=== PATIENT | male | born 1975 | race Caucasian/White ===

== ENCOUNTER 2020-03-22 16:31 | Inpatient (IN) | payer MEDICAID, OTHER ==
[2020-03-22 17:44] LABS: Amphetamine Screen,Urine Not Detected (NotDetected); Barbiturate Screen,Urine Not Detected (NotDetected); Benzodiazepines Screen,Urine Not Detected (NotDetected); Cocaine Screen,Urine Not Detected (NotDetected); Methadone Screen, Urine Not Detected (NotDetected); Opiate Screen,Urine Not Detected (NotDetected); Oxycodone Screen, Urine Not Detected (NotDetected); Phencyclidine Screen,Urine Not Detected (NotDetected); Tricyclic Antidepressant,Urine Not Detected (NotDetected); Urn Cannabinoid Scrn Detected (NotDetected)
[2020-03-22] MEDS ORDERED: OLANZapine 10 MG VIAL IM STA (19:48)
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
[2020-03-22] MEDS ORDERED: lisinopriL 10 MG TAB PO STA (22:08)
[2020-03-23] MEDS ORDERED: MAGNESIUM HYDROXIDE 2,400 MG/10 ML CUP PO PRN (00:16)
[2020-03-23] MEDS ORDERED: LORazepam 1 MG TAB PO PRN (00:16)
[2020-03-23] MEDS ORDERED: HALOPERIDOL LACTATE 5 MG/ML 1 ML VIAL IM PRN (00:18)
[2020-03-23] MEDS ORDERED: haloperidoL 1 MG TAB PO PRN (00:18)
[2020-03-23] MEDS ORDERED: LORazepam 2 MG/ML INJ IM PRN (00:18)
[2020-03-23] MEDS: NICOTINE 14MG/24HR PATCH TRANSDERM SCH (08:16)
[2020-03-23] MEDS: lisinopriL 10 MG TAB PO SCH (08:16)
[2020-03-23] MEDS ORDERED: FLUoxetine HCL 10 MG CAP PO SCH (09:00)
[2020-03-23] MEDS ORDERED: busPIRone HCl 5 MG TAB PO SCH (09:00)
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
[2020-03-23 15:08] VITALS: BMI 18.1
[2020-03-23] MEDS ORDERED: QUEtiapine 100 MG TAB PO SCH (21:00)
[2020-03-23] MEDS ORDERED: DIVALPROEX ER 500 MG TAB.ER.24H PO SCH (21:00)
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
[2020-03-24] MEDS: NICOTINE 14MG/24HR PATCH TRANSDERM SCH (08:05)
[2020-03-24] MEDS: lisinopriL 10 MG TAB PO SCH (08:05)
[2020-03-24] MEDS: amLODIPine 5 MG TAB PO SCH (08:05)
[2020-03-24 08:09] LABS: Basophils # (A) 0.1 k/uL (0-0.2); Basophils % (A) 1 %; Eosinophils # (A) 0.4 k/uL (0-0.7); Eosinophils % (A) 6 %; HCT 42.7 % (39.0-53.0); HGB 14.3 gm/dL (13.0-17.5); Lymphocytes # (A) 2.9 k/uL (1.0-4.8); Lymphocytes % (A) 39 %; MCH 34.2 pg (25.0-35.0); MCHC 33.5 g/dL (31.0-37.0); MCV 102.4 fL (80.0-100.0); Macrocytosis Slight; Monocytes # (A) 0.6 k/uL (0-1.0); Monocytes % (A) 8 %; Neutrophils # (A) 3.3 k/uL (1.3-7.7); Neutrophils % (A) 44 %; Platelet Count 232 k/uL (150-450); RBC 4.17 m/uL (4.30-5.90); RDW 12.9 % (11.5-15.5); WBC 7.3 k/uL (3.8-10.6)
[2020-03-24 08:26] LABS: ALT 17 U/L (4-49); AST 26 U/L (17-59); African American GFR (CKD) >90 (>60 ml/min/1.73 sqM); Albumin 3.9 g/dL (3.5-5.0); Alkaline Phosphatase 37 U/L (38-126); Anion Gap 5 mmol/L; Blood Urea Nitrogen 13 mg/dL (9-20); Calcium 9.3 mg/dL (8.4-10.2); Carbon Dioxide 26 mmol/L (22-30); Chloride 108 mmol/L (98-107); Cholesterol 148 mg/dL (<200); Glucose 89 mg/dL (74-99); HDL Cholesterol 53 mg/dL (40-60); LDL Cholesterol,Calculated 80 mg/dL (0-99); Non-African American GFR(CKD) >90 (>60 ml/min/1.73 sqM); Potassium 4.7 mmol/L (3.5-5.1); Sodium 139 mmol/L (137-145); Total Bilirubin 0.6 mg/dL (0.2-1.3); Total Protein 6.6 g/dL (6.3-8.2); Triglycerides 74 mg/dL (<150)
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
[2020-03-24 14:15] LABS: Hemoglobin A1C 5.2 % (4.0-6.0)
[2020-03-24] MEDS ORDERED: PALIPERIDONE 3 MG TAB.ER.24 PO SCH (21:00)
[2020-03-24] MEDS ORDERED: DIVALPROEX ER 250 MG TAB.ER.24H PO SCH (21:00)
[2020-03-24 22:39] LABS: Appearance,Urine Clear (Clear); Bilirubin,Urine Negative (Negative); Blood,Urine Negative (Negative); Color,Urine Light Yellow; Glucose,Urine (UA) Negative (Negative); Ketones,Urine Negative (Negative); Leukocyte Esterase,Urine Negative (Negative); Nitrite,Urine Negative (Negative); Protein,Urine Negative (Negative); Urobilinogen,Urine <2.0 mg/dL (<2.0)
[2020-03-25] MEDS: NICOTINE 14MG/24HR PATCH TRANSDERM SCH (08:48)
[2020-03-25] MEDS: lisinopriL 10 MG TAB PO SCH (08:49)
[2020-03-25] MEDS: amLODIPine 5 MG TAB PO SCH (08:49)
--- NOTE | 2020-03-25 10:24 | P.PN ---
Progress Note - Text Progress Note Date: 03/25/20 Interval History: Patient reports that he feels "okay." The patient has been reported to have slept for 6 hours. He is currently not reporting any suicidal or homicidal ideation, intention, and/or plan. He is not reporting any significant racing thoughts, mood swings, or impulsivity. He denies any increased goal-directed behavior. He does continue to endorse significant paranoia towards his father as well as all those that don't believe him. He was confronted today by this provider that these thoughts may be secondary to the paranoia he experiences as part of his mental condition, but the patient refuses to acknowledge this and is said adamant that people are conspiring against him. He has been adherent with his medications and is not reporting any significant side effects. Mental Status Exam: General Appearance: Patient appears to be stated age is alert, directable, and cooperative. Fair hygiene and grooming. Behavior: Psychomotor activity continues to appear to be elevated. Speech: Patient's speech is fluent and somewhat pressured. Speech is normal in volume now. He continues to be somewhat circumstantial. Mood/Affect: Mood is doing okay, affect is congruent but continues to be slightly expansive in range. Suicidality/Homicidality: Patient vehemently denies any suicidal or homicidal ideation, intention, and/or plan. Perceptions: Patient denies any auditory or visual hallucinations. Though content/process: Patient continues to endorse significant paranoia. Otherwise he appears to be linear in short conversation. Memory and concentration: AOX3, grossly intact for the purposes of this session Judgment and insight: Very poor Assessment Bipolar disorder, type I, manic episode Plan: -Patient continues to meet criteria for inpatient psychiatric admission for symptom stabilization and safety. Patient is scheduled for a deferral hearing today. -Medications: Increase Depakote ER to 1000 mg by mouth daily at bedtime for mood stabilization. We will obtain a Depakote level on Saturday. We will increase his Invega to 6 mg by mouth at bedtime. -When necessary Ativan and Haldol for agitation/aggression. -NRT - nicotine patch -SW on board for discharge planning. Encouraged the patient to participate in milieu.
[2020-03-25] MEDS: MAG HYDROX/AL HYDROX/SIMETH 30 ML CUP PO PRN (11:09)
[2020-03-25] MEDS: DIVALPROEX ER 500 MG TAB.ER.24H PO SCH (21:06)
[2020-03-25] MEDS: PALIPERIDONE 3 MG TAB.ER.24 PO SCH (21:09)
[2020-03-26] MEDS: NICOTINE 14MG/24HR PATCH TRANSDERM SCH (08:45)
[2020-03-26] MEDS: amLODIPine 10 MG TAB PO SCH (08:45)
[2020-03-26] MEDS: lisinopriL 10 MG TAB PO SCH (08:45)
[2020-03-26] MEDS: ACETAMINOPHEN TAB 325 MG TAB PO PRN (15:01)
--- NOTE | 2020-03-26 16:12 | P.PN ---
Progress Note - Text Progress Note Date: 03/26/20 Clinical Problems: Bipolar disorder type I manic episode Interim history: I reviewed the medical record and history of depression. He complained of feeling tired and fatigued from his current medications. He talked extensively about how he felt when he was abusing alcohol and compared how he felt not to how he felt when he was intoxicated. He questioned why he is taking 2 medications at nighttime when he has "no problems sleeping." When asked about reason for hospitalization gave a pressured, circumstantial and disjointed explanation about family property, call the police, conflict with his father and the of his grandmother and grandfather. She attends therapeutic groups and activities. He is posed no management problem and has no episodes of behavioral dyscontrol. He slept 7 hours last night. Mental status exam: He presented as a short thin disheveled appearing male who was pleasant on approach. He made eye contact and attended the interview. He had a bright facial expression. He was not restless or agitated. His speech was pressured with increased rate and rhythm. His affect was elevated but not intense and appropriate. He denied suicidal or homicidal ideation. Denied feeling hopeless, helpless or worthless. He ruminated about medications and the circumstances that led to this hospitalization. Express paranoid ideation but no clear paranoid delusional place. His thinking was concrete and associations were loosely organized. He denied hallucinations did not appear to responding to internal stimuli. Assessment: He continues to express paranoid thoughts but did not express or talk about paranoid ideation and brought him to the psychiatric unit. Plan: Attending inpatient treatment. Safety precautions. Continue Invega 6 mg at bedtime and Depakote 1000 mg at bedtime. Depakote level on 03/27/2019. Continue Norvasc for hypertension and Habitrol for smoking cessation. Encouraged continued participation in therapeutic groups and activities. Evaluate clinical status response to treatment daily basis.
[2020-03-26] MEDS: PALIPERIDONE 3 MG TAB.ER.24 PO SCH (21:01)
[2020-03-26] MEDS: DIVALPROEX ER 500 MG TAB.ER.24H PO SCH (21:02)
[2020-03-27] MEDS: lisinopriL 10 MG TAB PO SCH (08:28)
[2020-03-27] MEDS: amLODIPine 10 MG TAB PO SCH (08:28)
[2020-03-27] MEDS: NICOTINE 14MG/24HR PATCH TRANSDERM SCH (08:28)
[2020-03-27] MEDS: ACETAMINOPHEN TAB 325 MG TAB PO PRN (10:51)
--- NOTE | 2020-03-27 12:48 | P.PN ---
Progress Note - Text Progress Note Date: 03/27/20 Clinical Problems: Bipolar disorder type I manic episode Interim history: I reviewed the medical record and interviewed the patient. He again complained of feeling tired and fatigued from his current medications and attributes these feelings to his medication "too strong". He had a serum valp roic acid level this morning. At 63.2 level was therapeutic. We discussed treatment options and I agreed to decrease in the dose of Invega. She attends therapeutic groups and activities. He is posed no management problem and has no episodes of behavioral dyscontrol. He slept 7 hours last night. Mental status exam: He presented as a short thin disheveled appearing male who was pleasant on approach. He made eye contact and attended the interview. He had a bright facial expression. He was not restless or agitated. His speech was nonpressured.. His affect was blunted, stable and appropriate. He denied suicidal or homicidal ideation. He denied feeling hopeless, helpless or worthless. He ruminated about medications and the circumstances that led to this hospitalization. He did not express paranoid ideation or paranoid delusional beliefs. His thinking was concrete and associations were loosely organized. He denied hallucinations did not appear to responding to internal stimuli. Assessment: He is less restless, agitated and disorganized on admission. He is complaining of continued sedation. Plan: Continue inpatient treatment. Safety precautions. Decrease Invega to 3 mg daily and continue Depakote 1000 mg at bedtime. Depakote level on 03/27/2019. Continue Norvasc for hypertension and Habitrol for smoking cessation. Encouraged continued participation in therapeutic groups and activities. Evaluate clinical status response to treatment daily basis.
[2020-03-27] MEDS: DIVALPROEX ER 500 MG TAB.ER.24H PO SCH (21:00)
[2020-03-28] MEDS: NICOTINE 14MG/24HR PATCH TRANSDERM SCH (08:31)
[2020-03-28] MEDS: amLODIPine 10 MG TAB PO SCH (08:32)
[2020-03-28] MEDS: lisinopriL 10 MG TAB PO SCH (08:32)
[2020-03-28] MEDS ORDERED: PALIPERIDONE 3 MG TAB.ER.24 PO SCH (09:00)
--- NOTE | 2020-03-28 10:32 | P.PN ---
Progress Note - Text Progress Note Date: 03/28/20 Interval History: Patient was seen attending group and was directable and agreeable to speak with parts data writer in the office. Patient states that he is feeling pretty good. He is not reporting any suicidal or homicidal ideation, intention, and/or plan. He is not expressing any racing thoughts, mood swings, or impulsivity. He has been sleeping at night. He continues to endorse paranoia towards his father but it appears to be more understanding that his actions that led him to this hospitalization were out of proportion to what would be deemed acceptable. He has been adherent with his medications and is not reporting any significant side effects at this time. He expresses that upon discharge, he'll be living with his and that they're looking for a new apartment in [place]. Mental Status Exam: General Appearance: Patient appears to be stated age is alert, directable, and cooperative. Hygiene and grooming are excellent. Behavior: Patient is calmly seated without any agitated behavior. Psychomotor activity appears normal. Speech: Patient's speech is fluent and nonpressured. Mood/Affect: Mood is improving mildly, affect is congruent and euthymic. Suicidality/Homicidality: Patient is not reporting any suicidal or homicidal ideation, intention, and/or plan. Perceptions: Patient is not reporting any auditory or visual hallucinations. Though content/process: He continues to endorse significant paranoia towards his father. Otherwise he is future and goal oriented. Memory and concentration: AOX3, grossly intact for the purposes of this session Judgment and insight: Improving mildly Assessment Bipolar disorder, type I, manic episode Nicotine dependence Plan: -Patient continues to meet criteria for inpatient psychiatric admission for symptom stabilization and safety. Patient deferred on 03/25/2020. -Medications: Continue Invega 3 mg by mouth at bedtime for psychosis/mood stabilization Continue Depakote ER 1000 mg by mouth daily at bedtime. Depakote level was 63.2 on 03/27/2020 -When necessary Ativan and Haldol for agitation/aggression. -NRT - nicotine patch -SW on board for discharge planning. Encouraged the patient to participate in milieu.
[2020-03-28] MEDS: ACETAMINOPHEN TAB 325 MG TAB PO PRN (16:22)
[2020-03-28] MEDS: DIVALPROEX ER 500 MG TAB.ER.24H PO SCH (21:51)
[2020-03-28] MEDS: PALIPERIDONE 6 MG TAB.ER.24 PO SCH (22:09)
[2020-03-29] MEDS: NICOTINE 14MG/24HR PATCH TRANSDERM SCH (08:25)
[2020-03-29] MEDS: lisinopriL 10 MG TAB PO SCH (08:26)
[2020-03-29] MEDS: amLODIPine 10 MG TAB PO SCH (08:26)
[2020-03-29] MEDS: ACETAMINOPHEN TAB 325 MG TAB PO PRN (08:44)
[2020-03-29] MEDS: MAG HYDROX/AL HYDROX/SIMETH 30 ML CUP PO PRN ×2 (11:48→19:43)
--- NOTE | 2020-03-29 11:56 | P.PN ---
Progress Note - Text Progress Note Date: 03/29/20 Interval History: Patient was seen attending group this morning and was directable and agreeable to speak with commercial loan underwriter in the office. Patient was somewhat suspicious of commercial loan underwriter however was attempting to cooperate for the most part during the interview. He offered no overnight complaints and states that he slept well throughout the night. He offered no complaints about the medications he claims that he's been taking them as prescribed. He states that his mood has been stabilizing more and denies any depression at this time. He is not reporting any suicidal or homicidal ideation, intention, and/or plan. He is not expressing any racing thoughts, mood swings, or impulsivity. He continues to endorse paranoia towards his father. He has been adherent with his medications. Patient was asking about speaking with his significant other and when he can be discharged to [place]. Patient continues to have minimal insight and judgment. He was seen later on in the hallway by commercial loan underwriter and came up to commercial loan underwriter and was complaining about the medication states that "it's making my heart race and I do want to take that anymore". Mental Status Exam: General Appearance: Patient appears to be stated age is alert, directable, and attempts to be cooperative. Hygiene and grooming are improving mildly Behavior: Patient is calmly seated without any agitated behavior. Psychomotor activity appears normal. Speech: Patient's speech is fluent and nonpressured. He speaks rapidly at times. Mood/Affect: Mood is improving mildly, affect is congruent Suicidality/Homicidality: Patient is not reporting any suicidal or homicidal ideation, intention, and/or plan. Perceptions: Patient is not reporting any auditory or visual hallucinations. Though content/process: He continues to endorse significant paranoia towards his father. Goal oriented. Tangential. Preoccupied with his medications. Memory and concentration: AOX3, grossly intact for the purposes of this session Judgment and insight: Poor, Improving mildly Assessment Bipolar disorder, type I, manic episode Nicotine dependence Plan: -Patient continues to meet criteria for inpatient psychiatric admission for symptom stabilization and safety. Patient deferred on 03/25/2020. -Medications: Continue Invega 6 mg by mouth at bedtime for psychosis/mood stabilization Continue Depakote ER 1000 mg by mouth daily at bedtime. Depakote level was 63.2 on 03/27/2020 -When necessary Ativan and Haldol for agitation/aggression. -NRT - nicotine patch -SW on board for discharge planning. Encouraged the patient to participate in milieu. Likely discharge in 1-2 days.
[2020-03-29] MEDS: DIVALPROEX ER 500 MG TAB.ER.24H PO SCH (22:17)
[2020-03-29] MEDS: PALIPERIDONE 6 MG TAB.ER.24 PO SCH (22:18)
[2020-03-30] MEDS: lisinopriL 10 MG TAB PO SCH (08:43)
[2020-03-30] MEDS: NICOTINE 14MG/24HR PATCH TRANSDERM SCH ×2 (08:43→13:52)
[2020-03-30] MEDS: amLODIPine 10 MG TAB PO SCH (08:44)
--- NOTE | 2020-03-30 10:05 | P.PN ---
Progress Note - Text Progress Note Date: 03/30/20 Interval History: Patient was seen attending group and was directable and agreeable to speak with gag writer in his room. The patient states that upon discharge, he would likely be returning back to his home with his partner. He is currently not reporting any suicidal or homicidal ideation, intention, and/or plan. He is not reporting any auditory or visual hallucinations. Continues to endorse paranoia towards his father. He states that he is likely to file a PPO against his father. When asked that his property is currently owned by his father, the patient states that his father should be okay with him returning home. He states that he will sign a release of information for his father for our treatment team to speak with. He reported that he was having an increased heart rate but attributes this to his nicotine patch. He has been adherent with his medications and is not reporting any significant side effects at this time. Mental Status Exam: General Appearance: Patient appears to be stated age is alert, directable, and cooperative. Hygiene and grooming are good. Behavior: Patient is lying down in bed calmly without any agitated behavior. Psychomotor activity appears normal. Speech: Patient's speech is fluent and nonpressured. Mood/Affect: Mood is improving mildly, affect is congruent and euthymic. Suicidality/Homicidality: Patient is not reporting any suicidal or homicidal ideation, intention, and/or plan. Perceptions: Patient is not reporting any auditory or visual hallucinations. Though content/process: Patient continues to endorse paranoia towards his father. Memory and concentration: AOX3, grossly intact for the purposes of this session Judgment and insight: Improving mildly Assessment Bipolar disorder, type I, manic episode Nicotine dependence Plan: -Patient continues to meet criteria for inpatient psychiatric admission for symptom stabilization and safety. Patient deferred on 03/25/2020. -We will order EKG. Pending EKG, may consider increase in invega. -Medications: Continue Invega 6 mg by mouth at bedtime for psychosis/mood stabilization Continue Depakote ER 1000 mg by mouth daily at bedtime. Depakote level was 63.2 on 03/27/2020 -When necessary Ativan and Haldol for agitation/aggression. -NRT - nicotine patch -SW on board for discharge planning. Encouraged the patient to participate in milieu.
[2020-03-30] MEDS: DIVALPROEX ER 500 MG TAB.ER.24H PO SCH (21:13)
[2020-03-30] MEDS: PALIPERIDONE 6 MG TAB.ER.24 PO SCH (21:13)
[2020-03-31 06:42] VITALS: RESP 18; TEMP 98.1
[2020-03-31] MEDS: amLODIPine 10 MG TAB PO SCH (08:28)
[2020-03-31] MEDS: lisinopriL 10 MG TAB PO SCH (08:28)
[2020-03-31] MEDS: NICOTINE 14MG/24HR PATCH TRANSDERM SCH (08:29)
[2020-03-31 08:31] VITALS: BP 132/98; PULSE 118
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
== END 2020-03-31 18:31 | disposition home or self-care (01) | DRG 885 ==
LOC: EC 16:31 → 3MHU 03-23
PROVIDERS: ADMIT Psychiatry & Neurology Psychiatry; ATTEND Psychiatry & Neurology Psychiatry
DX: F31.9 Bipolar disorder, unspecified (principal); F12.20 Cannabis dependence, uncomplicated; F17.210 Nicotine dependence, cigarettes, uncomplicated; F22 Delusional disorders; I10 Essential (primary) hypertension; Z20.822 Contact with and (suspected) exposure to COVID-19
CPT/HCPCS: 80053; 80061; 80164; 80306; 81003; 82075; 83036; 84443; 85025; 87635; 93005; 99285

== ENCOUNTER 2020-04-11 15:22 | Inpatient (IN) | payer MEDICAID, OTHER ==
--- NOTE | 2020-04-11 15:47 | ED ---
General Adult HPI - General Chief complaint: Psychiatric Symptoms Stated complaint: Mental health Time Seen by Provider: 04/11/20 15:25 Source: patient, police, RN notes reviewed, old records reviewed Mode of arrival: ambulatory Limitations: no limitations - History of Present Illness Initial comments: This is a 44-year-old male who presents emergency Department because he was brought in by police because he has been getting more more agitated and he has missed his appointments at [facility]. The patient himself denies missing any appointments and he states he is only here because he was unable to fill his medications at the pharmacy. Patient denies any suicidal homicidal ideations. Patient denies any alcohol use patient denies any drug use. Patient denies any physical complaints at all. Patient denies chest pain difficulty breathing or shortness of breath. Patient denies any fever chills or cough per patient denies abdominal pain patient denies nausea vomiting diarrhea. - Related Data Previous Rx's Medication Instructions Recorded Divalproex ER [Depakote ER] 1,000 mg PO HS 30 Days tab.er.24h 03/31/20 Nicotine 14Mg/24Hr Patch [Habitrol] 1 patch TRANSDERM DAILY 30 Days 03/31/20 patch Paliperidone [Invega] 6 mg PO HS 30 Days tab.er.24 03/31/20 amLODIPine [Norvasc] 10 mg PO DAILY 30 Days tab 03/31/20 lisinopriL [Zestril] 30 mg PO DAILY 30 Days tab 03/31/20 Allergies Allergy/AdvReac Type Severity Reaction Status Date / Time No Known Allergies Allergy Verified 04/11/20 15:58 Review of Systems ROS Statement: Those systems with pertinent positive or pertinent negative responses have been documented in the HPI. ROS Other: All systems not noted in ROS Statement are negative. Past Medical History Past Medical History: Hypertension History of Any Multi-Drug Resistant Organisms: None Reported Past Surgical History: No Surgical Hx Reported Past Psychological History: Anxiety, Bipolar, Depression Smoking Status: Current every day smoker Past Alcohol Use History: None Reported Past Drug Use History: Marijuana - Past Family History family Family Medical History: No Reported History General Exam - General Exam Comments Initial Comments: GENERAL: Patient is well-developed and well-nourished. Patient is nontoxic and well- hydrated and is in no acute distress. ENT: Neck is soft and supple. No significant lymphadenopathy is noted. Oropharynx is clear. Moist mucous membranes. Neck has full range of motion without eliciting any pain. EYES: The sclera were anicteric and conjunctiva were pink and moist. Extraocular movements were intact and pupils were equal round and reactive to light. Eyelids were unremarkable. PULMONARY: Unlabored respirations. Good breath sounds bilaterally. No audible rales rhonchi or wheezing was noted. CARDIOVASCULAR: There is a regular rate and rhythm without any murmurs gallops or rubs. ABDOMEN: Soft and nontender with normal bowel sounds. SKIN: Skin is clear with no lesions or rashes and otherwise unremarkable. NEUROLOGIC: Patient is alert and oriented x3. Cranial nerves II through XII are grossly intact. Motor and sensory are also intact. Normal speech, volume and content. Symmetrical smile. MUSCULOSKELETAL: Normal extremities with adequate strength and full range of motion. LYMPHATICS: No significant lymphadenopathy is noted PSYCHIATRIC: Patient denies any suicidal homicidal ideations. Patient denies seeing anything abnormal or hearing voices. Limitations: no limitations Course Vital Signs 04/11/20 15:23 Temperature 98.3 F Pulse Rate 94 Respiratory 18 Rate Blood Pressure 169/111 O2 Sat by Pulse 98 Oximetry Medical Decision Making - Medical Decision Making EPS evaluated the patient and determined that the patient be admitted the patient was admitted. Patient was okay with being admitted but he still did not remember missing appointments and he denied not taking his medications. - Lab Data Lab Results 04/11/20 Range/Units 15:53 Urine Opiates Screen Not Detected (NotDetected) Ur Oxycodone Screen Not Detected (NotDetected) Urine Methadone Screen Not Detected (NotDetected) Ur Propoxyphene Screen Not Detected (NotDetected) Ur Barbiturates Screen Not Detected (NotDetected) U Tricyclic Antidepress Not Detected (NotDetected) Ur Phencyclidine Scrn Not Detected (NotDetected) Ur Amphetamines Screen Not Detected (NotDetected) U Methamphetamines Scrn Not Detected (NotDetected) U Benzodiazepines Scrn Not Detected (NotDetected) Urine Cocaine Screen Not Detected (NotDetected) U Marijuana (THC) Screen Detected H (NotDetected) Disposition Clinical Impression: Acute psychosis Disposition: ADMITTED IP TO THIS HOSP Referrals: None,Stated [Primary Care Provider] - 1-2 days Time of Disposition: 17:03
[2020-04-11 16:14] LABS: Amphetamine Screen,Urine Not Detected (NotDetected); Barbiturate Screen,Urine Not Detected (NotDetected); Benzodiazepines Screen,Urine Not Detected (NotDetected); Cocaine Screen,Urine Not Detected (NotDetected); Methadone Screen, Urine Not Detected (NotDetected); Opiate Screen,Urine Not Detected (NotDetected); Oxycodone Screen, Urine Not Detected (NotDetected); Phencyclidine Screen,Urine Not Detected (NotDetected); Tricyclic Antidepressant,Urine Not Detected (NotDetected); Urn Cannabinoid Scrn Detected (NotDetected)
[2020-04-11] MEDS ORDERED: LORazepam 1 MG TAB PO PRN (19:09)
[2020-04-11] MEDS ORDERED: MAGNESIUM HYDROXIDE 2,400 MG/10 ML CUP PO PRN (19:09)
[2020-04-11] MEDS ORDERED: LORazepam 2 MG/ML INJ IM PRN (19:10)
[2020-04-11] MEDS ORDERED: haloperidoL 5 MG TAB PO PRN (19:10)
[2020-04-11] MEDS ORDERED: HALOPERIDOL LACTATE 5 MG/ML 1 ML VIAL IM PRN (19:10)
[2020-04-11] MEDS: NICOTINE 14MG/24HR PATCH TRANSDERM SCH (20:46)
[2020-04-11] MEDS: DIVALPROEX ER 500 MG TAB.ER.24H PO SCH (20:46)
[2020-04-11] MEDS ORDERED: PALIPERIDONE 6 MG TAB.ER.24 PO SCH (21:00)
--- NOTE | 2020-04-11 22:57 | P.CONS ---
History of Present Illness - Reason for Consult Consult date: 04/11/20 - History of Present Illness The patient is a 44-year-old male with a PMH of hypertension, tobacco abuse, bipolar disorder, depression, and anxiety who was brought into the emergency room under police custody due to agitation and for missing his [facility] appointment. Patient was admitted to the mental health unit where he was seen and evaluated at the bedside. The patient was in good spirits and denied active complaints. He reported feeling well. He denied chest discomfort, shortness with no fever, chills, cough, nausea, vomiting, abdominal pain, diarrhea. Reported smoking 20- 25 cigarettes daily along with marijuana use. Denied any additional substance use. Review of Systems Pertinent positives and negatives as discussed in HPI, a complete review of systems was performed and all other systems are negative. Past Medical History Past Medical History: Hypertension History of Any Multi-Drug Resistant Organisms: None Reported Past Surgical History: No Surgical Hx Reported Past Psychological History: Anxiety, Bipolar, Depression Smoking Status: Current every day smoker Past Alcohol Use History: None Reported Past Drug Use History: Marijuana - Past Family History family Family Medical History: No Reported History Medications and Allergies Home Medications Medication Instructions Recorded Confirmed Type Divalproex ER [Depakote ER] 1,000 mg PO HS 30 Days tab.er.24h 03/31/20 04/11/20 Rx Nicotine 14Mg/24Hr Patch [Habitrol] 1 patch TRANSDERM DAILY 30 Days 03/31/20 04/11/20 Rx patch Paliperidone [Invega] 6 mg PO HS 30 Days tab.er.24 03/31/20 04/11/20 Rx amLODIPine [Norvasc] 10 mg PO DAILY 30 Days tab 03/31/20 04/11/20 Rx lisinopriL [Zestril] 30 mg PO DAILY 30 Days tab 03/31/20 04/11/20 Rx Allergies Allergy/AdvReac Type Severity Reaction Status Date / Time No Known Allergies Allergy Verified 04/11/20 15:58 Physical Exam Vitals: Vital Signs Temp Pulse Pulse Resp BP BP Pulse Ox 04/11/20 20:47 81 158/90 04/11/20 19:59 98.1 F 85 20 117/106 04/11/20 15:23 98.3 F 94 18 169/111 98 Intake and Output 04/11/20 04/11/20 04/11/20 06:59 14:59 22:59 Other: Weight 56.472 kg General: non toxic, no distress, appears at stated age, underweight Derm: no unusual rashes/lesions no unusual ecchymoses, warm, dry Head: atraumatic, normocephalic, symmetric Eyes: EOMI, no lid lag, anicteric sclera, pupils equal round reactive to light ENT: Nose and ears atraumatic, no thrush, no pharyngeal erythema Neck: No thyromegaly, no cervical lymphadenopathy, trachea midline, supple Mouth: no lip lesion, mucus membranes moist Cardiovascular: S1S2 reg, no murmur, positive posterior tibial pulse bilateral, no edema, capillary refill less than 2 seconds Lungs: CTA bilateral, no rhonchi, no rales , no accessory muscle use Abdominal: soft, nontender to palpation, no guarding, no appreciable organomegaly, normal bowel sounds Ext: no gross muscle atrophy, muscle strength 5 out of 5 in all 4 extremities grossly, no contractures, Neuro: CN II-XI grossly intact, light touch intact all 4 extremities, finger to nose within normal limits, Psych: Alert, oriented, appropriate affect Results Labs: Abnormal Lab Results - Last 24 Hours (Table) 04/11/20 Range/Units 15:53 U Marijuana (THC) Screen Detected H (NotDetected) Assessment and Plan Plan: Hypertension -Continue with home meds lisinopril and Norvasc Tobacco and marijuana abuse -Advised on the importance of cessation Bipolar disorder, depression -As per psychiatry Thank you for allowing us to participate in the care of this patient. We will follow peripherally. Do not hesitate to contact us with questions. Someone can be reached from the [facility] hospitalist group at all hours of the day at [phone].
[2020-04-12 07:06] LABS: Basophils # (A) 0.1 k/uL (0-0.2); Basophils % (A) 1 %; Eosinophils # (A) 0.2 k/uL (0-0.7); Eosinophils % (A) 3 %; HCT 43.9 % (39.0-53.0); HGB 14.8 gm/dL (13.0-17.5); Lymphocytes # (A) 3.1 k/uL (1.0-4.8); Lymphocytes % (A) 33 %; MCH 34.5 pg (25.0-35.0); MCHC 33.7 g/dL (31.0-37.0); MCV 102.7 fL (80.0-100.0); Macrocytosis Slight; Mean Platelet Volume 7.3; Monocytes # (A) 0.8 k/uL (0-1.0); Monocytes % (A) 8 %; Neutrophils % (A) 53 %; Platelet Count 319 k/uL (150-450); RBC 4.28 m/uL (4.30-5.90); RDW 13.1 % (11.5-15.5); WBC 9.4 k/uL (3.8-10.6)
[2020-04-12 07:25] LABS: ALT 26 U/L (4-49); AST 31 U/L (17-59); African American GFR (CKD) >90 (>60 ml/min/1.73 sqM); Albumin 4.4 g/dL (3.5-5.0); Alkaline Phosphatase 44 U/L (38-126); Anion Gap 6 mmol/L; Blood Urea Nitrogen 11 mg/dL (9-20); Calcium 9.4 mg/dL (8.4-10.2); Carbon Dioxide 28 mmol/L (22-30); Chloride 102 mmol/L (98-107); Cholesterol 144 mg/dL (<200); Glucose 83 mg/dL (74-99); HDL Cholesterol 60 mg/dL (40-60); LDL Cholesterol,Calculated 74 mg/dL (0-99); Non-African American GFR(CKD) >90 (>60 ml/min/1.73 sqM); Potassium 4.6 mmol/L (3.5-5.1); Sodium 136 mmol/L (137-145); Total Bilirubin 0.4 mg/dL (0.2-1.3); Triglycerides 48 mg/dL (<150)
[2020-04-12] MEDS: lisinopriL 10 MG TAB PO SCH (08:25)
[2020-04-12] MEDS: amLODIPine 10 MG TAB PO SCH (08:27)
[2020-04-12] MEDS: NICOTINE 14MG/24HR PATCH TRANSDERM SCH (08:27)
--- NOTE | 2020-04-12 12:09 | P.HP ---
Psychiatric H&P - . H&P Date: 04/12/20 History & Physical: Allergies Allergy/AdvReac Type Severity Reaction Status Date / Time No Known Allergies Allergy Verified 04/11/20 15:58 Vital Signs Temp 97.9 F 04/12/20 06:40 Pulse 92 04/12/20 06:40 Resp 20 04/11/20 19:59 BP 132/98 04/12/20 06:40 Pulse Ox 98 04/11/20 15:23 Intake & Output 04/11/20 04/12/20 04/12/20 18:59 06:59 18:59 Weight 70.307 kg 56.472 kg Laboratory Last Values WBC 9.4 k/uL (3.8-10.6) 04/12/20 06:35 RBC 4.28 m/uL (4.30-5.90) L 04/12/20 06:35 Hgb 14.8 gm/dL (13.0-17.5) 04/12/20 06:35 Hct 43.9 % (39.0-53.0) 04/12/20 06:35 MCV 102.7 fL (80.0-100.0) H 04/12/20 06:35 MCH 34.5 pg (25.0-35.0) 04/12/20 06:35 MCHC 33.7 g/dL (31.0-37.0) 04/12/20 06:35 RDW 13.1 % (11.5-15.5) 04/12/20 06:35 Plt Count 319 k/uL (150-450) 04/12/20 06:35 MPV 7.3 04/12/20 06:35 Neutrophils % 53 % 04/12/20 06:35 Lymphocytes % 33 % 04/12/20 06:35 Monocytes % 8 % 04/12/20 06:35 Eosinophils % 3 % 04/12/20 06:35 Basophils % 1 % 04/12/20 06:35 Neutrophils # 5.0 k/uL (1.3-7.7) 04/12/20 06:35 Lymphocytes # 3.1 k/uL (1.0-4.8) 04/12/20 06:35 Monocytes # 0.8 k/uL (0-1.0) 04/12/20 06:35 Eosinophils # 0.2 k/uL (0-0.7) 04/12/20 06:35 Basophils # 0.1 k/uL (0-0.2) 04/12/20 06:35 Macrocytosis Slight 04/12/20 06:35 Sodium 136 mmol/L (137-145) L 04/12/20 06:35 Potassium 4.6 mmol/L (3.5-5.1) 04/12/20 06:35 Chloride 102 mmol/L (98-107) 04/12/20 06:35 Carbon Dioxide 28 mmol/L (22-30) 04/12/20 06:35 Anion Gap 6 mmol/L 04/12/20 06:35 BUN 11 mg/dL (9-20) 04/12/20 06:35 Creatinine 0.80 mg/dL (0.66-1.25) 04/12/20 06:35 Est GFR (CKD-EPI)AfAm >90 (>60 ml/min/1.73 sqM) 04/12/20 06:35 Est GFR (CKD-EPI)NonAf >90 (>60 ml/min/1.73 sqM) 04/12/20 06:35 Glucose 83 mg/dL (74-99) 04/12/20 06:35 Calcium 9.4 mg/dL (8.4-10.2) 04/12/20 06:35 Total Bilirubin 0.4 mg/dL (0.2-1.3) 04/12/20 06:35 AST 31 U/L (17-59) 04/12/20 06:35 ALT 26 U/L (4-49) 04/12/20 06:35 Alkaline Phosphatase 44 U/L (38-126) 04/12/20 06:35 Total Protein 7.0 g/dL (6.3-8.2) 04/12/20 06:35 Albumin 4.4 g/dL (3.5-5.0) 04/12/20 06:35 Triglycerides 48 mg/dL (<150) 04/12/20 06:35 Cholesterol 144 mg/dL (<200) 04/12/20 06:35 LDL Cholesterol, Calc 74 mg/dL (0-99) 04/12/20 06:35 HDL Cholesterol 60 mg/dL (40-60) 04/12/20 06:35 TSH 4.670 mIU/L (0.465-4.680) 04/12/20 06:35 Urine Opiates Screen Not Detected (NotDetected) 04/11/20 15:53 Ur Oxycodone Screen Not Detected (NotDetected) 04/11/20 15:53 Urine Methadone Screen Not Detected (NotDetected) 04/11/20 15:53 Ur Propoxyphene Screen Not Detected (NotDetected) 04/11/20 15:53 Ur Barbiturates Screen Not Detected (NotDetected) 04/11/20 15:53 Valproic Acid <10.0 ug/mL 04/12/20 06:35 U Tricyclic Antidepress Not Detected (NotDetected) 04/11/20 15:53 Ur Phencyclidine Scrn Not Detected (NotDetected) 04/11/20 15:53 Ur Amphetamines Screen Not Detected (NotDetected) 04/11/20 15:53 U Methamphetamines Scrn Not Detected (NotDetected) 04/11/20 15:53 U Benzodiazepines Scrn Not Detected (NotDetected) 04/11/20 15:53 Urine Cocaine Screen Not Detected (NotDetected) 04/11/20 15:53 U Marijuana (THC) Screen Detected (NotDetected) H 04/11/20 15:53 Coronavirus (PCR) Not Detected (Not Detectd) 04/11/20 17:39 04/12/20 11:53 IDENTIFYING DATA: Patient is an engaged, unemployed, 44 year old male was admitted for agitation and nonadherence with his outpatient follow-up treatment. HPI: Patient presented to the hospital on 04/11/2020, brought in by police due to agitation and having missed his appointments with [facility]. The patient was most recently admitted to the psychiatric unit from 03/23/2020 to 03/31/2020 for treatment of bipolar disorder. During that hospital stay, the patient deferred mental health court. Currently the patient states that since he was discharged last from the psychiatric unit, he was unable to waste picker his medications stating that the pharmacist at [facility] was confused by the prescription that was written for him. He reports that they attempted to contact the psychiatric unit to fix the prescription so that he may receive his medications but was unable to do so. Furthermore, the patient states that he did not follow up with his [facility] appointment which was scheduled on 04/02/2020 because he was lacking transportation and he states that he was attempting to call [facility] but no one answered the phone. The patient states that he has not been taking any of his medications since he was last discharged. The patient is unable to fully recall the events leading to his initial hospitalization. He was informed that during that initial psychiatric evaluation, he did endorse significant paranoia and delusions believing that there were not robots on the floor that was monitoring his movements. The patient is able to recall this after he was reminded of this and states that it was likely the stress of losing his daughter that caused him to think that way. He is denying that there was any episodes of agitation since he was last discharged. Currently he is not reporting any auditory or visual hallucinations. He is not reporting any paranoia or delusions at this time. He does appear to be confused about the circumstances surrounding the custody of his daughter. He then states that he has been confusing CPS with [facility]. He is not reporting any suicidal or homicidal ideation, intention, and/or plan. He reports no issues with sleep or appetite. PAST PSYCHIATRIC HISTORY: Patient has a working diagnosis of bipolar disorder, type I. He was last discharged on Invega and Depakote. Previous psychotropic medications also include Prozac and BuSpar. The patient was most recently admitted into the psychiatric unit from 03/23/2020 to 03/31/2020. He also has 1 other prior inpatient psychiatric admission 15 years ago. The patient was supposed to follow with [facility] but did not attend his follow-up appointments. He denies any prior attempts at suicide. PMH: Hypertension ALLERGIES: NO KNOWN DRUG ALLERGIES CHEMICAL DEPENDENCY HISTORY: Patient reports smoking one pack per day of tobacco. He reports frequent and heavy marijuana use. He states he last smoked marijuana prior to this admission. He denies any alcohol use or any other illicit drug use. FAMILY PSYCHIATRIC/SUBSTANCE USE HISTORY: Patient denies any family psychiatric or substance abuse history. SOCIAL HISTORY: Patient is currently living in the home owned by his father. He lives there with his fiance Kacie with whom he has been with for 9 years. They have a 2-year-old daughter who is currently not in their custody. CPS is currently involved. MENTAL STATUS EXAM: General Appearance: Patient appears to be stated age is alert, directable, and attempts to cooperate. Patient appears to have fair hygiene and grooming. Behavior: Patient is seated without any agitated behavior. Psychomotor activity appears to be elevated. Patient is restless and unable to sit still. Speech: Patient's speech is slightly pressured, at times difficult to interrupt, loud in volume. Mood/Affect: Patient reports their mood is confused, affect is intense, expansive, and anxious. Suicidality/Homicidality: Patient denies any suicidal or homicidal ideation, intention, and/or plan. Perceptions: Patient denies any auditory or visual hallucinations. Though content/process: There is no evidence of any delusional thought content and thought process is linear and goal-directed. Memory and concentration: AOX3, grossly intact for the purposes of this session. Can spell "WORLD" backwards Judgment and insight: Poor STRENGTHS/WEAKNESSES: Strength is that the patient has stable housing and support from his fiance.. Weakness is that patient has poor judgment and is impulsive INTELLECT: Average to below average IMPRESSIONS: Bipolar disorder, type I Cannabis use disorder Nicotine dependence PLAN: -Patient is admitted under involuntary status to MHU for stabilization of psyc hiatric symptoms and safety. Patient was on the referral from his previous psychiatric hospitalization. A demand will be filed for the court. -Medications : We will restart the patient's psychotropic medications -Restart Depakote 1000 mg by mouth at bedtime for eric -Restart invega 3 mg by mouth at bedtime for psychosis/mood stabilization. Due to non-adherence with treatment we will transition the patient to invega sustenna. -Ativan and Haldol PRN for agitation/aggression -Patient was counselled on substance abuse but appears to be precontemplative on his marijuana use at this time. -Patient was informed of the risks, benefits and side effects of the medication and patient verbally consented to taking the medications. -Internal Medicine consult to perform medical evaluation and physical. -NRT - nicotine patch -SW on board for discharge planning. Encourage patient to participate in groups to work on coping skills.
[2020-04-12 13:57] LABS: Hemoglobin A1C 5.5 % (4.0-6.0)
[2020-04-12] MEDS: DIVALPROEX ER 500 MG TAB.ER.24H PO SCH (20:52)
[2020-04-12] MEDS: PALIPERIDONE 3 MG TAB.ER.24 PO SCH (20:52)
[2020-04-12 21:12] LABS: Appearance,Urine Clear (Clear); Bilirubin,Urine Negative (Negative); Blood,Urine Negative (Negative); Color,Urine Colorless; Glucose,Urine (UA) Negative (Negative); Ketones,Urine Negative (Negative); Leukocyte Esterase,Urine Negative (Negative); Nitrite,Urine Negative (Negative); Protein,Urine Negative (Negative); Specific Gravity,Urine 1.003 (1.001-1.035); Urobilinogen,Urine <2.0 mg/dL (<2.0)
[2020-04-13] MEDS: lisinopriL 10 MG TAB PO SCH (08:31)
[2020-04-13] MEDS: amLODIPine 10 MG TAB PO SCH (08:31)
[2020-04-13] MEDS: NICOTINE 14MG/24HR PATCH TRANSDERM SCH (08:31)
--- NOTE | 2020-04-13 11:09 | P.PN ---
Progress Note - Text Progress Note Date: 04/13/20 Interval History: Patient was seen wandering the hallways and was directable and agreeable to speak with the screenplay writer in the office. Currently the patient is presenting well. He is not reporting any auditory or visual hallucinations. He isn't denying any paranoia or delusions at this time. He is not reporting any suicidal or homicidal ideation, intention, and/or plan. He has been attending group and has been able to address his hygiene, grooming, and ADLs. He has been adherent with his medications but continues to express a desire not to be on any injectable medication. Regarding the circumstances of his nonadherence to treatment, the patient continues to make excuses stating that the pharmacy did not on her scripts that were written, that no one was answering the phones at [facility] or here, and that he is also lacking transportation. Mental Status Exam: General Appearance: Patient appears to be stated age is alert, directable, and cooperative. Good hygiene and grooming. Behavior: Patient is calmly seated without any agitated behavior. Psychomotor activity appears normal. Speech: Patient's speech is fluent and nonpressured. Mood/Affect: Mood is improving mildly, affect is congruent and constricted. Suicidality/Homicidality: Patient denies having any suicidal or homicidal ideation intent or plan. Perceptions: Patient denies any visual hallucinations and denies any auditory hallucinations Though content/process: There is no evidence of any delusional thought content and thought process is linear and goal-directed. Memory and concentration: AOX3, grossly intact for the purposes of this session Judgment and insight: Improving mildly Assessment Bipolar disorder, type I Cannabis use disorder Nicotine dependence Plan: -Patient continues to meet criteria for inpatient psychiatric admission for symptom stabilization and safety. Patient is under deferral from his previous psychiatric hospitalization. A demand for court has been filed with a hearing scheduled for 04/27/2020 -Medications: Continue Depakote 1000 mg by mouth at bedtime for eric We will continue Invega 3 mg by mouth at bedtime at this time and then increased to 6 mg tomorrow. -When necessary Ativan and Haldol for agitation/aggression. -NRT - nicotine patch -SW on board for discharge planning. Encouraged the patient to participate in milieu.
[2020-04-13] MEDS: DIVALPROEX ER 500 MG TAB.ER.24H PO SCH (21:48)
[2020-04-13] MEDS: PALIPERIDONE 3 MG TAB.ER.24 PO SCH (21:48)
[2020-04-14] MEDS: lisinopriL 10 MG TAB PO SCH (08:13)
[2020-04-14] MEDS: amLODIPine 10 MG TAB PO SCH (08:13)
[2020-04-14] MEDS: NICOTINE 14MG/24HR PATCH TRANSDERM SCH (08:13)
--- NOTE | 2020-04-14 10:22 | P.PN ---
Progress Note - Text Progress Note Date: 04/14/20 Interval History: Patient was seen attending group and was directable and agreeable to speak with the headline writer in the office. Patient continues to present well. He has been adherent with his medications and treatment recommendations. He has been attending groups and interacting with peers and staff appropriately. He is not reporting any suicidal or homicidal ideation, intention, and/or plan. He is not reporting any auditory or visualizations. He is currently not reporting any paranoia or delusions. He is scheduled for court due to his nonadherence with mental health treatment for 04/27/2020. He continues to be hesitant about transitioning to a long-acting injectable medication. Depakote level was determined to be less than 10 indicating that the patient has not been in adherent with his medications since his last discharge. Mental Status Exam: General Appearance: Patient appears to be stated age is alert, directable, and cooperative. Good hygiene and grooming. Behavior: Patient is calmly seated without any agitated behavior. Psychomotor activity appears normal. Speech: Patient's speech is fluent and nonpressured. Mood/Affect: Mood is improving mildly, affect is congruent and constricted. Suicidality/Homicidality: Patient denies having any suicidal or homicidal ideation intent or plan. Perceptions: Patient denies any visual hallucinations and denies any auditory hallucinations Though content/process: There is no evidence of any delusional thought content and thought process is linear and goal-directed. Memory and concentration: AOX3, grossly intact for the purposes of this session Judgment and insight: Improving mildly Assessment Bipolar disorder, type I Cannabis use disorder Nicotine dependence Plan: -Patient continues to meet criteria for inpatient psychiatric admission for symptom stabilization and safety. Patient is under deferral from his previous psychiatric hospitalization. A demand for court has been filed with a hearing scheduled for 04/27/2020 -Medications: Continue Depakote 1000 mg by mouth at bedtime for eric. Depakote level <10. We will recheck depakote level over the weekend. Invega will be increased to 6 mg by mouth daily. We do plan to transition the patient to a long-acting injectable due to history of nonadherence with treatment. -When necessary Ativan and Haldol for agitation/aggression. -NRT - nicotine patch -SW on board for discharge planning. Encouraged the patient to participate in milieu.
[2020-04-14] MEDS: PALIPERIDONE 3 MG TAB.ER.24 PO SCH (20:59)
[2020-04-14] MEDS: DIVALPROEX ER 500 MG TAB.ER.24H PO SCH (20:59)
[2020-04-15] MEDS: amLODIPine 10 MG TAB PO SCH (08:44)
[2020-04-15] MEDS: NICOTINE 14MG/24HR PATCH TRANSDERM SCH (08:44)
[2020-04-15] MEDS: lisinopriL 10 MG TAB PO SCH (08:44)
--- NOTE | 2020-04-15 10:09 | P.PN ---
Progress Note - Text Progress Note Date: 04/15/20 Interval History: Patient was seen attending group and was directable and agreeable to speak with the investigative writer in the office. Patient continues to present well. Patient has been appropriately sociable with peers and staff. He has been going to groups. He has been adherent to his medications and is not reporting any significant side effects. He is denying any suicidal or homicidal ideation, intention, and/or plan. He is not reporting any auditory or visual hallucinations. She is currently not reporting any paranoia or delusions. He is scheduled for court due to his nonadherence mental health treatment on 04/27/2020. Patient is agreeable to a slow titration of his medications to therapeutic doses. He'll continue the conversation for long-acting injectable medication, with consideration to administer early next week. Mental Status Exam: General Appearance: Patient appears to be stated age is alert, directable, and cooperative. Good hygiene and grooming. Behavior: Patient is calmly seated without any agitated behavior. Psychomotor activity appears normal. Speech: Patient's speech is fluent and nonpressured. Mood/Affect: Mood is good, affect is congruent and constricted. Suicidality/Homicidality: Patient denies having any suicidal or homicidal usha ation intent or plan. Perceptions: Patient denies any visual hallucinations and denies any auditory hallucinations Though content/process: There is no evidence of any delusional thought content and thought process is linear and goal-directed. Memory and concentration: AOX3, grossly intact for the purposes of this session Judgment and insight: Improving mildly Assessment Bipolar disorder, type I Cannabis use disorder Nicotine dependence Plan: -Patient continues to meet criteria for inpatient psychiatric admission for symptom stabilization and safety. Patient is under deferral from his previous psychiatric hospitalization. A demand for court has been filed with a hearing scheduled for 04/27/2020 -Medications: Continue Depakote 1000 mg by mouth at bedtime for eric. Depakote level <10. Depakote level will be checked tomorrow. Continue Invega current dose and we will increase Invega to 9 mg on Saturday and will consider administration of Invega Sustenna on Saturday if the patient is agreeable. -When necessary Ativan and Haldol for agitation/aggression. -NRT - nicotine patch -SW on board for discharge planning. Encouraged the patient to participate in milieu.
[2020-04-15] MEDS: PALIPERIDONE 3 MG TAB.ER.24 PO SCH (20:17)
[2020-04-15] MEDS: DIVALPROEX ER 500 MG TAB.ER.24H PO SCH (20:17)
[2020-04-16] MEDS: NICOTINE 14MG/24HR PATCH TRANSDERM SCH (08:51)
[2020-04-16] MEDS: amLODIPine 10 MG TAB PO SCH (08:52)
[2020-04-16] MEDS: lisinopriL 10 MG TAB PO SCH (08:52)
[2020-04-16] MEDS: ACETAMINOPHEN TAB 325 MG TAB PO PRN (16:33)
--- NOTE | 2020-04-16 20:51 | PN ---
DATE OF SERVICE: 04/16/2020 PROGRESS NOTE CHIEF COMPLAINT: The patient was readmitted after his 03/31 discharge due to not being able to get his medications filled or making his followup appointment. He had some difficulty with recalling events. INTERVAL HISTORY: Patient has been doing fair. He had a quiet day yesterday. He attends groups and makes some effort to engage in the group session. There is one note in the morning group as follows "the patient spoke of conspiracies and was paranoid and delusional. Patient attempted to speak of paranormal activity twice in group and asked for a law library. The patient was also paranoid about [facility] and the State." He reports that he slept fairly well last night. Today, he has been up. He attended groups today. He is appropriate in his interaction with staff and peers. Staff noted that he seemed to be in a pleasant mood. He had some complaints about legal issues, not only the court hearing regarding his court ordered treatment, but apparently some other legal issues as well. He made the statement that he was going to combine all his legal matters into one and that he may end up taking it to the [place] or even the [place]. In regard to his medications, he had no specific complaints or concerns, though he did wonder about having received more medication than he thought he was supposed to earlier on in the admission. He appears to tolerate his psychotropic medications. MENTAL STATUS: Patient sat with fair eye contact at best. Psychomotor activity was slowed. Speech was monotone and soft. He answered questions with brief responses. He would make some tangential comments. At times, it was somewhat difficult to follow his train of thought. He had a somewhat anxious intense affect. His mood was dysphoric. He seems somewhat distressed. He seemed to continued to verbalize significant paranoid ideation. He voiced no thoughts of harm. He was oriented and alert. ASSESSMENT: I will continue the current diagnosis and treatment plan. We will continue to make efforts to engage the patient in individual and group therapeutic activities. He will continue Depakote 1000 mg a day and Invega 6 mg a day. Tomorrow, Invega will go up to 9 mg. His Depakote level this morning was 79. I briefly reviewed medication issues with the patient, though he did not really engage much in that conversation, so I kept it limited. We will focus on stabilization and discharge planning. MMODL / IJN: [id number] / FRANCIS
[2020-04-16] MEDS: PALIPERIDONE 3 MG TAB.ER.24 PO SCH (21:01)
[2020-04-16] MEDS: DIVALPROEX ER 500 MG TAB.ER.24H PO SCH (21:02)
[2020-04-17] MEDS: NICOTINE 14MG/24HR PATCH TRANSDERM SCH (08:32)
[2020-04-17] MEDS: lisinopriL 10 MG TAB PO SCH (08:33)
[2020-04-17] MEDS: amLODIPine 10 MG TAB PO SCH (08:33)
[2020-04-17] MEDS: MAG HYDROX/AL HYDROX/SIMETH 30 ML CUP PO PRN (10:59)
[2020-04-17] MEDS: ACETAMINOPHEN TAB 325 MG TAB PO PRN (15:35)
--- NOTE | 2020-04-17 16:21 | PN ---
PROGRESS NOTE DATE OF SERVICE: 04/17/2020. CHIEF COMPLAINT: The patient was readmitted after his 03/31 discharge due to not being able to get his medications filled and making his followup appointment. He had some difficulty with recalling events. INTERVAL HISTORY: The patient has been doing fair. He had a quiet day yesterday. He comes out on the unit. He will wander about. He seems comfortable in the milieu. He has been attending groups. He tends to have a quiet manner in groups though is appropriate in groups. He said that he slept fairly well last night. He noted one concern that after he receives his Invega, he might have some, what he called "heart" issues. He did not really identify having any kind of abnormal heart rhythm. It is noted that he has had some tachycardia. He said he thinks one of the issues is the nicotine patch and he did indicate that he would consider stopping smoking altogether. Overall, he feels his mood is improving. He has a better outlook. He tolerates his psychotropic medications. MENTAL STATUS: Patient gave fairly good eye contact. He was a little restless. He answered questions appropriately. His thoughts were clear and coherent. He did not say a lot, though he was interactive. His affect was a little constricted though he showed a little more emotionality than when I interviewed him yesterday. His mood was reserved though not clearly down or depressed. He did not appear to be distressed. There was no outward evidence of thought disorder. He voiced no thoughts of harm. Cognition was clear. ASSESSMENT: I will continue the current diagnosis and treatment plan. I will continue psychotropic medications the same. I reviewed medication issues with the patient including indications, potential side effects, concerns relating to metabolics and movement disorder issue as it relates to the Invega. His Depakote level from yesterday is 79. We will focus on stabilization and discharge planning. MMODL / IJN: [id number] /
[2020-04-17] MEDS: DIVALPROEX ER 500 MG TAB.ER.24H PO SCH (20:43)
[2020-04-17] MEDS ORDERED: PALIPERIDONE 3 MG TAB.ER.24 PO SCH (21:00)
[2020-04-18] MEDS: NICOTINE 14MG/24HR PATCH TRANSDERM SCH (08:44)
[2020-04-18] MEDS: lisinopriL 10 MG TAB PO SCH (08:44)
[2020-04-18] MEDS: amLODIPine 10 MG TAB PO SCH (08:45)
[2020-04-18] MEDS ORDERED: PALIPERIDONE IM 234 MG/1.5 ML SYG IM STA (09:41)
--- NOTE | 2020-04-18 10:05 | P.PN ---
Progress Note - Text Progress Note Date: 04/18/20 Interval History: Patient was seen attending group and was directable and agreeable to speak with the commercial loan underwriter in the office. Patient continues to present well. He has been noted by group therapy staff to be making significant paranoid statements but has otherwise been denying any paranoia, delusional thought processes, or hallucinations to this provider. He is not reporting any suicidal or homicidal ideation, intention, and/or plan. He has been adherent with his medications and is not reporting any significant side effects. He reports the weekend went well and he was able to watch the [employer]. He is agreeable to taking Invega Sustenna at this time. We discussed at length the risks, benefits, and side effects. The patient is still inquiring about discharge. He is currently under a demand due to nonadherence with treatment. Mental Status Exam: General Appearance: Patient appears to be stated age is alert, directable, and cooperative. Good hygiene and grooming. Behavior: Patient is calmly seated without any agitated behavior. Psychomotor activity appears normal. Speech: Patient's speech is fluent and nonpressured. Mood/Affect: Mood is good, affect is congruent and constricted. Suicidality/Homicidality: Patient denies having any suicidal or homicidal ideation intent or plan. Perceptions: Patient denies any visual hallucinations and denies any auditory hallucinations Though content/process: There is no evidence of any delusional thought content and thought process is linear and goal-directed. Memory and concentration: AOX3, grossly intact for the purposes of this session Judgment and insight: Fair Assessment Bipolar disorder, type I Cannabis use disorder Nicotine dependence Plan: -Patient continues to meet criteria for inpatient psychiatric admission for symptom stabilization and safety. Patient is under deferral from his previous psychiatric hospitalization. A demand for court has been filed with a hearing scheduled for 04/27/2020 -Medications: Continue Depakote 1000 mg by mouth at bedtime for eric. Depakote level noted to be 79.0. Invega Sustenna 234 mg IM will be administered today for psychosis/eric. -When necessary Ativan and Haldol for agitation/aggression. -NRT - nicotine patch -SW on board for discharge planning. Encouraged the patient to participate in milieu.
[2020-04-18] MEDS: ACETAMINOPHEN TAB 325 MG TAB PO PRN (14:45)
[2020-04-18] MEDS: MAG HYDROX/AL HYDROX/SIMETH 30 ML CUP PO PRN (19:56)
[2020-04-18] MEDS: DIVALPROEX ER 500 MG TAB.ER.24H PO SCH (21:22)
[2020-04-19] MEDS: amLODIPine 10 MG TAB PO SCH (08:53)
[2020-04-19] MEDS: lisinopriL 10 MG TAB PO SCH (08:53)
[2020-04-19] MEDS: NICOTINE 14MG/24HR PATCH TRANSDERM SCH (08:55)
[2020-04-19] MEDS: MAG HYDROX/AL HYDROX/SIMETH 30 ML CUP PO PRN (09:04)
--- NOTE | 2020-04-19 10:08 | P.PN ---
Progress Note - Text Progress Note Date: 04/19/20 Interval History: Patient was seen attending group and was directable and agreeable to speak with the chief writer in the office. The patient reports that he is feeling well. He received the first loading dose of Invega Sustenna 234 mg IM yesterday. He is not reporting any significant side effects of the medication aside from soreness at the injection site. He is not reporting any suicidal or homicidal ideation, intention, and/or plan. He is not reporting any auditory or visual hallucinations. He is been adherent with his Depakote and denies any side effects of medication as well. The patient is not reporting any significant paranoia at this time. The patient reports that he is agreeable to waiting until his court date. Mental Status Exam: General Appearance: Patient appears to be stated age is alert, directable, and cooperative. Good hygiene and grooming. Behavior: Patient is calmly seated without any agitated behavior. Psychomotor activity appears normal. Speech: Patient's speech is fluent and nonpressured. Mood/Affect: Mood is "doing all right," affect is congruent and constricted. Suicidality/Homicidality: Patient denies having any suicidal or homicidal ideation intent or plan. Perceptions: Patient denies any visual hallucinations and denies any auditory hallucinations Though content/process: There is no evidence of any delusional thought content and thought process is linear and goal-directed. Memory and concentration: AOX3, grossly intact for the purposes of this session Judgment and insight: Fair Assessment Bipolar disorder, type I Cannabis use disorder Nicotine dependence Plan: -Patient continues to meet criteria for inpatient psychiatric admission for symptom stabilization and safety. Patient is under deferral from his previous psychiatric hospitalization. A demand for court has been filed with a hearing scheduled for 04/27/2020 -Medications: Continue Depakote 1000 mg by mouth at bedtime for eric. Depakote level noted to be 79.0. Invega Sustenna 234 mg IM was administered on 04/18/2020. The patient will receive Invega Sustenna 156 mg IM in 3 days. -When necessary Ativan and Haldol for agitation/aggression. -NRT - nicotine patch -SW on board for discharge planning. Encouraged the patient to participate in milieu.
[2020-04-19] MEDS: ACETAMINOPHEN TAB 325 MG TAB PO PRN ×2 (12:06→16:23)
[2020-04-19] MEDS: DIVALPROEX ER 500 MG TAB.ER.24H PO SCH (21:30)
[2020-04-20] MEDS: amLODIPine 10 MG TAB PO SCH (08:45)
[2020-04-20] MEDS: NICOTINE 14MG/24HR PATCH TRANSDERM SCH (08:45)
[2020-04-20] MEDS: lisinopriL 10 MG TAB PO SCH (08:45)
--- NOTE | 2020-04-20 10:20 | P.PN ---
Progress Note - Text Progress Note Date: 04/20/20 Interval History: Patient was seen attending group and was directable and agreeable to speak with the senior writer in the office. The patient reports that he is feeling "jittery." He attributes this to either the Invega or his nicotine patch. His vitals do note that he has been tachycardic. He is not endorsing any palpitations, lightheadedness, or chest pain. He reports just feelings of restlessness. He is otherwise not reporting any suicidal or homicidal ideation, intention, and/or plan. He is denying any paranoia or delusions at this time. He is not reporting any auditory or visual hallucinations. He is agreeable to his long- acting injectable medication. He is not reporting any grandiosity, racing thoughts, impulsivity, or increased goal-directed behavior. Mental Status Exam: General Appearance: Patient appears to be stated age is alert, directable, and cooperative. Good hygiene and grooming. Behavior: Patient is calmly seated without any agitated behavior. Psychomotor activity appears slightly elevated. Speech: Patient's speech is fluent and nonpressured. Mood/Affect: Mood is "feeling jittery," affect is constricted in range but otherwise euthymic. Suicidality/Homicidality: Patient denies having any suicidal or homicidal ideation intent or plan. Perceptions: Patient denies any visual hallucinations and denies any auditory hallucinations Though content/process: There is no evidence of any delusional thought content and thought process is linear and goal-directed. Memory and concentration: AOX3, grossly intact for the purposes of this session Judgment and insight: Fair Assessment Bipolar disorder, type I Cannabis use disorder Nicotine dependence Plan: -Patient continues to meet criteria for inpatient psychiatric admission for symptom stabilization and safety. Patient is under deferral from his previous psychiatric hospitalization. A demand for court has been filed with a hearing scheduled for 04/27/2020 -Medications: Continue Depakote 1000 mg by mouth at bedtime for eric. Depakote level noted to be 79.0. Invega Sustenna 234 mg IM was administered on 04/18/2020. The second dose of Invega Sustenna 150 6. grams IM will be given on 04/22/2020. -When necessary Ativan and Haldol for agitation/aggression. -NRT -we will change nicotine patch and Nicorette gum as per patient preference and to address any possible over activation secondary to nicotine. -SW on board for discharge planning. Encouraged the patient to participate in milieu.
[2020-04-20] MEDS: ACETAMINOPHEN TAB 325 MG TAB PO PRN ×2 (12:02→21:00)
[2020-04-20] MEDS: NICOTINE POLACRILEX 2 MG GUM BUCCAL PRN ×2 (12:02→18:38)
[2020-04-20] MEDS: DIVALPROEX ER 500 MG TAB.ER.24H PO SCH (20:59)
[2020-04-21] MEDS: lisinopriL 10 MG TAB PO SCH (08:11)
[2020-04-21] MEDS: amLODIPine 10 MG TAB PO SCH (08:11)
[2020-04-21] MEDS: NICOTINE POLACRILEX 2 MG GUM BUCCAL PRN ×3 (08:12→19:56)
--- NOTE | 2020-04-21 11:42 | P.PN ---
Progress Note - Text Progress Note Date: 04/21/20 Interval History: Patient was seen attending group and was directable and agreeable to speak with the development writer in the office. The patient reports that he is feeling less jittery today. He is not reporting any suicidal or homicidal ideation, intention, and/or plan. He is denying any paranoia or delusions at this time. He is not reporting any auditory or visual hallucinations. The patient states that he no longer has custody of his daughter and that his daughter actually belongs to his daughter's ex-boyfriend. He appears to be nonchalant about this despite being very upset about losing his daughter during this hospitalization and previous hospitalizations. He has been adherent with his medications and is not reporting any significant side effects at this time. He is scheduled to receive his next dose of Invega Sustenna tomorrow. Mental Status Exam: General Appearance: Patient appears to be stated age is alert, directable, and cooperative. Good hygiene and grooming. Behavior: Patient is calmly seated without any agitated behavior. Psychomotor activity appears normal. Eye contact is appropriate. Speech: Patient's speech is fluent and nonpressured. Mood/Affect: Mood is "feeling okay" affect is constricted in range but otherwise euthymic. Suicidality/Homicidality: Patient denies having any suicidal or homicidal ideation intent or plan. Perceptions: Patient denies any visual hallucinations and denies any auditory hallucinations Though content/process: There is no evidence of any delusional thought content and thought process is linear and goal-directed. Memory and concentration: AOX3, grossly intact for the purposes of this session Judgment and insight: Fair Assessment Bipolar disorder, type I Cannabis use disorder Nicotine dependence Plan: -Patient continues to meet criteria for inpatient psychiatric admission for symptom stabilization and safety. Patient is under deferral from his previous psychiatric hospitalization. A demand for court has been filed with a hearing scheduled for 04/27/2020 -Medications: Continue Depakote 1000 mg by mouth at bedtime for eric. Depakote level noted to be 79.0. Invega Sustenna 234 mg IM was administered on 04/18/2020. The second dose of Invega Sustenna 156. grams IM will be given on 04/22/2020. -When necessary Ativan and Haldol for agitation/aggression. -NRT -we will change nicotine patch and Nicorette gum as per patient preference and to address any possible over activation secondary to nicotine. -SW on board for discharge planning. Encouraged the patient to participate in milieu.
[2020-04-21] MEDS: ACETAMINOPHEN TAB 325 MG TAB PO PRN ×2 (12:44→17:40)
[2020-04-21] MEDS: MAG HYDROX/AL HYDROX/SIMETH 30 ML CUP PO PRN (15:36)
[2020-04-21] MEDS: DIVALPROEX ER 500 MG TAB.ER.24H PO SCH (21:26)
[2020-04-22] MEDS: lisinopriL 10 MG TAB PO SCH (08:49)
[2020-04-22] MEDS: amLODIPine 10 MG TAB PO SCH (08:49)
[2020-04-22] MEDS: ACETAMINOPHEN TAB 325 MG TAB PO PRN (09:26)
[2020-04-22] MEDS: NICOTINE POLACRILEX 2 MG GUM BUCCAL PRN ×3 (09:28→21:07)
[2020-04-22] MEDS: MAG HYDROX/AL HYDROX/SIMETH 30 ML CUP PO PRN (09:30)
--- NOTE | 2020-04-22 10:30 | P.PN ---
Progress Note - Text Progress Note Date: 04/22/20 Interval History: Patient was seen attending group and was directable and agreeable to speak with the press writer in the office. At this time, the patient is presenting as irritable and agitated. He is stating that ", I have been trying to tell you for the last few days of his Invega is not the medication for me." He states that this medication is causing him to feel uneasy, paranoid, and expressed palpitations. He is denying any chest pain. He states that he does not want to take any of these medications and then goes on to a rant about why he is admitted into the psychiatric unit. The patient states that it is not a crime for speaking to Da Diggs and Robyn Lyn over Twitter. He then expresses that his father is the one who should be here as his father is an alcoholic and was attempting to hurt him and his family. The patient is stating that he is going to refuse the Invega. He is otherwise not reporting any suicidal or homicidal ideation, intention, and/or plan. He is not reporting any auditory or visual hallucinations. He continues to be adherent with his other medications. Mental Status Exam: General Appearance: Patient appears to be stated age is alert, directable, and cooperative. Good hygiene and grooming. Behavior: Patient is calmly seated without any agitated behavior. Psychomotor activity is elevated. Eye contact is intense. Speech: Patient's speech pressured, loud in volume, but otherwise normal fluency. Mood/Affect: Mood is "angry" affect is angry and expansive. Suicidality/Homicidality: Patient denies having any suicidal or homicidal ideation intent or plan. Perceptions: Patient denies any visual hallucinations and denies any auditory hallucinations Though content/process: Paranoid thought content is evident. Some grandiose delusions are endorsed. Somatic symptoms are endorsed. Memory and concentration: AOX3, grossly intact for the purposes of this session Judgment and insight: Poor Assessment Bipolar disorder, type I Cannabis use disorder Nicotine dependence Plan: -Patient continues to meet criteria for inpatient psychiatric admission for symptom stabilization and safety. Patient is under deferral from his previous psychiatric hospitalization. A demand for court has been filed with a hearing scheduled for 04/27/2020 -Medications: Continue Depakote 1000 mg by mouth at bedtime for eric. Depakote level noted to be 79.0. Invega Sustenna 234 mg IM was administered on 04/18/2020. Currently the patient is refusing the next dose of Invega. The patient is scheduled for court on 04/27/2020. -When necessary Ativan and Haldol for agitation/aggression. -NRT -we will change nicotine patch and Nicorette gum as per patient preference and to address any possible over activation secondary to nicotine. -SW on board for discharge planning. Encouraged the patient to participate in milieu.
[2020-04-22] MEDS: DIVALPROEX ER 500 MG TAB.ER.24H PO SCH (21:06)
[2020-04-23] MEDS: amLODIPine 10 MG TAB PO SCH (08:52)
[2020-04-23] MEDS: lisinopriL 10 MG TAB PO SCH (08:52)
[2020-04-23] MEDS: NICOTINE POLACRILEX 2 MG GUM BUCCAL PRN ×2 (08:53→13:56)
[2020-04-23] MEDS: MAG HYDROX/AL HYDROX/SIMETH 30 ML CUP PO PRN (09:25)
--- NOTE | 2020-04-23 16:55 | P.PN ---
Progress Note - Text Progress Note Date: 04/23/20 Clinical Problems: Bipolar disorder most recent episode manic with psychotic features, cannabis use disorder, tobacco use Interim history: I reviewed the medical record and interviewed the patient. He is a 44-year-old male with a history of a bipolar disorder who was readmitted to the psychiatric unit involuntarily for noncompliance with outpatient treatment. He perseverated about the side effects of his medication. He stated that he will not continue taking Invega and complained that it made him feel unwell. He also argued that Depakote is causing muscle cramps. He questioned the need for medication and denied that he has a bipolar illness. He also talked about his multiple social problems including loss of custody of his child. Mental status exam: Presented as a 44-year-old male who was pleasant on approach. He made eye contact and attended to the interview. He was restless during interview. He had a calm facial expression. His speech was spontaneous and had increased rate and rhythm. His affect was elevated but appropriate. He denied suicidal ideation or wishes. He denied homicidal ideation. He feels helpless about his continued hospitalization and mistreated by [facility] for having been rehospitalized. He is paranoid and expressed paranoid ideation and described is a conspiracy theory involving his father. His thinking was concrete and associations weren't fully coherent, logical goal-directed. Assessment: He is less irritable than on admission but continues to express paranoid thoughts and paranoid delusional beliefs. He has no insight or understanding of his illness or need for treatment. Plan: Continue inpatient treatment. Safety precautions. Probate court hearing pending. Continue Depakote 1000 mg at bedtime. Continue paliperidone 234 mg monthly. Haldol and Ativan when necessary for agitation acute psychosis. Encourage participation in therapies groups and activities. Evaluate clinical status response to treatment daily basis.
[2020-04-23] MEDS: DIVALPROEX ER 500 MG TAB.ER.24H PO SCH (21:32)
[2020-04-24] MEDS: NICOTINE POLACRILEX 2 MG GUM BUCCAL PRN ×3 (08:48→18:57)
[2020-04-24] MEDS: amLODIPine 10 MG TAB PO SCH (08:48)
[2020-04-24] MEDS: lisinopriL 10 MG TAB PO SCH (08:48)
--- NOTE | 2020-04-24 14:29 | P.PN ---
Progress Note - Text Progress Note Date: 04/24/20 Clinical Problems: Bipolar disorder most recent episode manic with psychotic features, cannabis use disorder, tobacco use Interim history: I reviewed the medical record and interviewed the patient. He perseverated about the circumstances that led to this hospitalization. He denied that he is noncompliant with medications or [facility] appointments. He believes that his statements had been misinterpreted by staff at [facility] and his psychiatrist. He again talked about believing that there is some conspiracy involving his father. He made broad political references to [place] and Obama. Mental status exam: Presented as a 44-year-old male who was pleasant on approach. He made eye contact and attended to the interview. He was not restless during interview. He had a calm facial expression. His speech was spontaneous and had increased rate and rhythm. His affect was irritable but not uncontrolled. He denied suicidal ideation or wishes. He denied homicidal ideation. He feels helpless about his continued hospitalization and mistreated by [facility] for having been rehospitalized. He is paranoid and expressed paranoid ideation and described is a conspiracy theory involving his father. His thinking was concrete and associations weren't fully coherent, logical goal-directed. Assessment: He remains irritable and continues to express paranoid thoughts and paranoid delusional beliefs. He has no insight or understanding of his illness or need for treatment. Plan: Continue inpatient treatment. Safety precautions. Probate court hearing pending. Continue Depakote 1000 mg at bedtime. Continue paliperidone 234 mg monthly. Haldol and Ativan when necessary for agitation acute psychosis. Encourage participation in therapies groups and activities. Evaluate clinical status response to treatment daily basis.
[2020-04-24] MEDS: DIVALPROEX ER 500 MG TAB.ER.24H PO SCH (21:15)
[2020-04-25] MEDS: NICOTINE POLACRILEX 2 MG GUM BUCCAL PRN ×3 (06:44→17:01)
[2020-04-25] MEDS: amLODIPine 10 MG TAB PO SCH (08:42)
[2020-04-25] MEDS: lisinopriL 10 MG TAB PO SCH (08:42)
--- NOTE | 2020-04-25 10:08 | P.PN ---
Progress Note - Text Progress Note Date: 04/25/20 Interval History: Patient was seen attending group and was directable and agreeable to speak with the racebook writer in the office. The patient continues to present with significant symptoms of paranoia. He continues to vehemently deny the events leading to this hospitalization stating that he firmly believes that he acted correctly. Despite educating the patient on the reasons for his admission, the patient continues to firmly deny the events leading to this hospitalization. He is displaying limited insight. He continues to report that Invega was not a good medication for him despite this provider seeing the patient daily with the patient not endorsing any significant symptoms of muscle tightness from that medication for the weeks that he was on Invega including his last hospital stay. The patient states that he was experiencing the muscle tightness as well as palpitations. He reports that he'll refuse the medication. He states that he does not believe he needs to be on any antipsychotic medication as he is not psychotic. Mental Status Exam: General Appearance: Patient appears to be stated age is alert,difficult to direct, and intermittently cooperative. Good hygiene and grooming. Behavior: Patient is calmly seated without any agitated behavior. Psychomotor activity is elevated. Eye contact is intense. Speech: Patient's speech pressured, loud in volume, but otherwise normal fluency. Mood/Affect: Mood is "angry" affect is intense and expansive Suicidality/Homicidality: Patient denies having any suicidal or homicidal ideation intent or plan. Perceptions: Patient denies any visual hallucinations and denies any auditory hallucinations Though content/process: Paranoid thought content is evident. Grandiose delusions are endorsed. Somatic symptoms are endorsed. Memory and concentration: AOX3, grossly intact for the purposes of this session Judgment and insight: Poor Assessment Bipolar disorder, type I Cannabis use disorder Nicotine dependence Plan: -Patient continues to meet criteria for inpatient psychiatric admission for symptom stabilization and safety. Patient is under deferral from his previous psychiatric hospitalization. A demand for court has been filed with a hearing scheduled for 04/27/2020 -Medications: Continue Depakote 1000 mg by mouth at bedtime for eric. Depakote level noted to be 79.0. Invega Sustenna 234 mg IM was administered on 04/18/2020. The patient is refusing that dose of Invega. We discussed starting Abilify instead. We will start Abilify 20 mg by mouth daily. The patient needs to be transitioned to a long-acting injectable due to his history of nonadherence with treatment. -When necessary Ativan and Haldol for agitation/aggression. -NRT -Nicorette gum -SW on board for discharge planning. Encouraged the patient to participate in milieu.
[2020-04-25] MEDS: DIVALPROEX ER 500 MG TAB.ER.24H PO SCH (20:33)
[2020-04-26] MEDS: amLODIPine 10 MG TAB PO SCH (08:40)
[2020-04-26] MEDS: lisinopriL 10 MG TAB PO SCH (08:41)
[2020-04-26] MEDS: NICOTINE POLACRILEX 2 MG GUM BUCCAL PRN ×3 (08:44→18:55)
--- NOTE | 2020-04-26 09:22 | P.PN ---
Progress Note - Text Progress Note Date: 04/26/20 Interval History: Patient was seen resting in bed in his room due to feeling tired after taking his morning Abilify. The patient reports that he feels like the medications making him drowsy. He is not reporting any chest pain, muscle tightness, or other side effects of the medication. He states that he is willing to try the medication. He is not reporting any suicidal or homicidal ideation, intention, and/or plan. He is not reporting any auditory or visual hallucinations. He is not endorsing any paranoid delusions at this time. He has been adherent with his medications. He is scheduled for mental health court tomorrow. Patient states that he will take a nap at this time and will report back to this physician if there are any other problems with the Abilify. He is agreeable at this time to transition to Abilify maintena. Mental Status Exam: General Appearance: Patient appears to be stated age is alert, directable and cooperative. Hygiene and grooming appear good. Behavior: Patient is calmly lying down in bed without any agitated behavior. Eye contact is appropriate. Speech: Patient's speech is normal in volume, tone, rate, and fluency. Mood/Affect: Mood is "tired." Affect is euthymic but with constricted range. Suicidality/Homicidality: Patient denies having any suicidal or homicidal ideation intent or plan. Perceptions: Patient denies any visual hallucinations and denies any auditory hallucinations Though content/process: The patient is not endorsing any delusional thought content at this time. Thought process is linear and logical in short conversation. Memory and concentration: AOX3, grossly intact for the purposes of this session Judgment and insight: Mildly improving Assessment Bipolar disorder, type I Cannabis use disorder Nicotine dependence Plan: -Patient continues to meet criteria for inpatient psychiatric admission for symptom stabilization and safety. Patient is under deferral from his previous psychiatric hospitalization. A demand for court has been filed with a hearing scheduled for 04/27/2020 -Medications: Continue Depakote 1000 mg by mouth at bedtime for eric. Depakote level noted to be 79.0. Invega Sustenna 234 mg IM was administered on 04/18/2020. The patient is refused the second dose of invega. Continue Abilify 20 mg and moved to bedtime as per patient preference. Discussed with the patient plan to transition him to Abilify maintain as to which he is agreeable. -When necessary Ativan and Haldol for agitation/aggression. -NRT -Nicorette gum -SW on board for discharge planning. Encouraged the patient to participate in milieu.
[2020-04-26] MEDS: DIVALPROEX ER 500 MG TAB.ER.24H PO SCH (20:52)
[2020-04-27] MEDS: NICOTINE POLACRILEX 2 MG GUM BUCCAL PRN ×3 (06:49→18:18)
[2020-04-27] MEDS: amLODIPine 10 MG TAB PO SCH (08:55)
[2020-04-27] MEDS: lisinopriL 10 MG TAB PO SCH (08:55)
[2020-04-27] MEDS ORDERED: HALOPERIDOL LACTATE 5 MG/ML 1 ML VIAL IM PRN (12:03)
--- NOTE | 2020-04-27 12:04 | P.PN ---
Progress Note - Text Progress Note Date: 04/27/20 Interval History: Patient was seen after attending court. The patient is now court ordered for mental health treatment. The patient is agreeable to treatment at this time. He is currently not reporting any suicidal or homicidal ideation, intention, and/or plan. He is denying any auditory or visual hallucinations. He is not reporting any paranoia or delusions. He has been adherent with his medications. He does report feeling like Abilify is making his breath shallow. Review of his vitals revealed no abnormalities aside from tachycardia which appears to be consistently present. The patient is not reporting any chest pain, palpitations, muscle tightness, restlessness. He denies any issues with sleep or appetite. Mental Status Exam: General Appearance: Patient appears to be stated age is alert, directable and cooperative. Hygiene and grooming appear good. Behavior: Patient is calmly lying down in bed without any agitated behavior. Eye contact is appropriate. Speech: Patient's speech is normal in volume, tone, rate, and fluency. Mood/Affect: Mood is "doing okay" Affect is euthymic but with constricted range. Suicidality/Homicidality: Patient denies having any suicidal or homicidal ideation intent or plan. Perceptions: Patient denies any visual hallucinations and denies any auditory hallucinations Though content/process: The patient is not endorsing any delusional thought content at this time. Thought process is linear and logical in short conversation. Memory and concentration: AOX3, grossly intact for the purposes of this session Judgment and insight: Mildly improving Assessment Bipolar disorder, type I Cannabis use disorder Nicotine dependence Plan: -Patient continues to meet criteria for inpatient psychiatric admission for symptom stabilization and safety. The patient is court ordered for psychiatric treatment as of 04/27/2020. -Medications: Continue Depakote 1000 mg by mouth at bedtime for eric. Depakote level noted to be 79.0. Increase Abilify to 30 mg by mouth at bedtime for psychosis/mood stabilization. We will likely administer Abilify maintena starting tomorrow. We'll place as needed Haldol medication as the patient is refusing his Abilify. -When necessary Ativan and Haldol for agitation/aggression. -NRT -Nicorette gum -SW on board for discharge planning. Encouraged the patient to participate in milieu.
[2020-04-27 15:08] VITALS: BMI 19.1
[2020-04-27] MEDS: DIVALPROEX ER 500 MG TAB.ER.24H PO SCH (20:30)
[2020-04-27] MEDS ORDERED: ARIPiprazole 15 MG TAB PO SCH (21:00)
[2020-04-28] MEDS: lisinopriL 10 MG TAB PO SCH (08:14)
[2020-04-28] MEDS: amLODIPine 10 MG TAB PO SCH (08:14)
[2020-04-28] MEDS: NICOTINE POLACRILEX 2 MG GUM BUCCAL PRN ×2 (08:32→14:48)
[2020-04-28] MEDS ORDERED: ARIPiprazole IM 400 MG VIAL (NO COST) PHARMACY STOCK IM ONE (09:28)
--- NOTE | 2020-04-28 10:05 | P.PN ---
Progress Note - Text Progress Note Date: 04/28/20 Interval History: Patient reports that he is feeling okay. He is not reporting any suicidal or homicidal ideation, intention, and/or plan. He is denying any auditory or visual hallucinations. He does not report any paranoia or delusions. Has been adherent with his medications and is not reporting any significant side effects at this time. He is not reporting any restlessness, chest pain, palpitations, or shortness of breath. He is agreeable to the plan to transition to Abilify maintena today. The patient is not reporting any issues with sleep or appetite either. Mental Status Exam: General Appearance: Patient appears to be stated age is alert, directable and co operative. Hygiene and grooming appear good. Behavior: Patient is calmly lying down in bed without any agitated behavior. Eye contact is appropriate. Speech: Patient's speech is normal in volume, tone, rate, and fluency. Mood/Affect: Mood is "feeling fine" Affect is euthymic but with constricted range. Suicidality/Homicidality: Patient denies having any suicidal or homicidal ideation intent or plan. Perceptions: Patient denies any visual hallucinations and denies any auditory hallucinations Though content/process: The patient is not endorsing any delusional thought content at this time. Thought process is linear and logical in short conversation. Memory and concentration: AOX3, grossly intact for the purposes of this session Judgment and insight: Improving Assessment Bipolar disorder, type I Cannabis use disorder Nicotine dependence Plan: -Patient continues to meet criteria for inpatient psychiatric admission for symptom stabilization and safety. The patient is court ordered for psychiatric treatment as of 04/27/2020. -Medications: Continue Depakote 1000 mg by mouth at bedtime for eric. Depakote level noted to be 79.0. We will administer Abilify maintena 300 mg IM instead of 400 mg IM due to the patient receiving Invega Sustenna loading dose of 234 mg on 04/18/2020. We will decrease his oral Abilify to 20 mg by mouth daily. We will continue to monitor the patient's tolerance of the medication in anticipation of discharge early next week. -When necessary Ativan and Haldol for agitation/aggression. -NRT -Nicorette gum -SW on board for discharge planning. Encouraged the patient to participate in milieu.
[2020-04-28] MEDS: DIVALPROEX ER 500 MG TAB.ER.24H PO SCH (21:03)
[2020-04-29] MEDS: lisinopriL 10 MG TAB PO SCH (08:32)
[2020-04-29] MEDS: amLODIPine 10 MG TAB PO SCH (08:32)
[2020-04-29] MEDS: NICOTINE POLACRILEX 2 MG GUM BUCCAL PRN ×3 (08:34→18:54)
--- NOTE | 2020-04-29 10:49 | P.PN ---
Progress Note - Text Progress Note Date: 04/29/20 Interval History: Patient reports that he is doing all right. He is not reporting any suicidal or homicidal ideation, intention, and/or plan. He is denying any auditory or visual hallucinations. He does not report any paranoia or delusions. The patient received Abilify maintain at 300 mg IM yesterday and is not reporting any significant side effects. He has been in treatment with his prescribed medications. He has been attending group. He has been able to address hygiene and grooming. As the patient does have a significant history of nonadherence with treatment, we plan to continue to administer the oral dose of Abilify in anticipation for discharge on Saturday. Mental Status Exam: General Appearance: Patient appears to be stated age is alert, directable and cooperative. Hygiene and grooming appear good. Behavior: Patient is calmly lying down in bed without any agitated behavior. Eye contact is appropriate. Speech: Patient's speech is normal in volume, tone, rate, and fluency. Mood/Affect: Mood is "doing all right" Affect is euthymic but with improved range but somewhat constricted. Suicidality/Homicidality: Patient denies having any suicidal or homicidal ideation intent or plan. Perceptions: Patient denies any visual hallucinations and denies any auditory hallucinations Though content/process: The patient is not endorsing any delusional thought content at this time. Thought process is linear and logical in short conversation. Memory and concentration: AOX3, grossly intact for the purposes of this session Judgment and insight: Improving Assessment Bipolar disorder, type I Cannabis use disorder Nicotine dependence Plan: -Patient continues to meet criteria for inpatient psychiatric admission for symptom stabilization and safety. The patient is court ordered for psychiatric treatment as of 04/27/2020. -Medications: Continue Depakote 1000 mg by mouth at bedtime for eric. Depakote level noted to be 79.0. Invega Sustenna loading dose of 234 mg on 04/18/2020. The patient also received Abilify maintain at 300 mg IM on 04/28/2020. Continue oral Abilify 20 mg by mouth daily. -When necessary Ativan and Haldol for agitation/aggression. -NRT -Nicorette gum -SW on board for discharge planning. Encouraged the patient to participate in milieu.
[2020-04-29 12:29] LABS: African American GFR (CKD) >90 (>60 ml/min/1.73 sqM); Anion Gap 7 mmol/L; Blood Urea Nitrogen 23 mg/dL (9-20); Calcium 9.3 mg/dL (8.4-10.2); Carbon Dioxide 30 mmol/L (22-30); Chloride 95 mmol/L (98-107); Glucose 103 mg/dL (74-99); Non-African American GFR(CKD) >90 (>60 ml/min/1.73 sqM); Potassium 4.6 mmol/L (3.5-5.1); Sodium 132 mmol/L (137-145)
[2020-04-29 13:33] LABS: Uric Acid 5.1 mg/dL (3.5-8.5)
--- NOTE | 2020-04-29 15:26 | P.PN ---
<Marcio Underwood - Last Filed: 04/29/20 15:05> Subjective Progress Note Date: 04/29/20 Hospital Course: Patient is a 44-year-old male with a past medical history of hypertension, bipolar disorder, depression, anxiety, and nicotine dependence on cigarettes whom is currently admitted under psychiatry to the mental health unit for treatment of his bipolar disorder accompanied reports of increased agitation and nonadherence with outpatient follow-up treatment program. We have been consulted for management of laboratory findings indicated above hyponatremia w ith sodium of 132 and prerenal azotemia with BUN of 23. Physical exam: Patient seen and fully evaluated. He reports feeling generally well today and denies having any complaints at this time including headache, lightheadedness, dizziness, changes in vision or hearing, tinnitus, chest pain or palpitations, shortness of breath, dyspnea with exertion, or experiencing any swelling/numbness/tingling/weakness in extremities. General: Non toxic, no distress, appears at stated age, thin build Derm: warm, dry Head: atraumatic, normocephalic, symmetric Eyes: EOMI, no lid lag, anicteric sclera Mouth: no lip lesion, mucus membranes moist Cardiovascular: Regular rate and rhythm with no murmur, positive posterior tibial pulse bilaterally, cap refill less than 2 seconds. Lungs: Respirations even, regular, and unlabored on room air. Lungs diminished at bilateral lower lobes, otherwise clear to auscultation bilaterally no adventitious lung sounds including wheezes, rhonchi, rales, or crackles noted. Abdominal: Soft, nontender to palpation, no guarding, no appreciable organomegaly Ext: No gross muscle atrophy, no edema, no contractures, ambulatory with a steady gait unassisted. Neuro: Speech clear, GCS 15. No focal neuro deficits Psych: Alert and oriented to person place and time and situation. Cooperative, calm and appropriate affect Plan of care: Hyponatremia -Sodium 132. -Hyponatremia likely secondary to daily medication management with Depakote. -Orders placed for serum osmolality, urine osmolality, urine sodium, uric acid, and TSH. -We will continue to monitor closely and follow up with lab results as well as repeat a.m. labs. Prerenal azotemia -BUN elevated to 23 from previous lab results of 11. -Likely secondary to decreased oral intake resulting in mild dehydration. -Patient encouraged to increase oral hydration. RN instructed on plan of care. -We will continue to monitor with repeat a.m. labs. Hypertension -Monitor vital signs and continue daily medication management with Norvasc and lisinopril. Nicotine dependence. -Patient reports long-standing history of and current use of tobacco products reportedly smoking 20-30 cigarettes daily. -Patient was educated on importance and benefits of smoking with Zofran and admitted for continued use up to and including . Bipolar disorder with anxiety and depression -Management per primary admitting psychiatric team. Thank you for allowing us to participate in the care of this pleasant patient. Do not hesitate to contact us with questions. Someone can be reached from the [facility] hospitalist group all hours of the day at [phone] or via [employer]. Objective - Vital Signs Vital signs: Vital Signs Temp 98.2 F 04/29/20 06:16 Pulse 115 H 04/29/20 08:35 Resp 18 04/28/20 06:23 BP 122/84 04/29/20 08:35 Pulse Ox 98 04/26/20 06:44 - Labs CBC & Chem 7: 04/12/20 06:35 04/29/20 11:07 Labs: Abnormal Lab Results - Last 24 Hours (Table) 04/29/20 Range/Units 11:07 Sodium 132 L (137-145) mmol/L Chloride 95 L (98-107) mmol/L BUN 23 H (9-20) mg/dL Glucose 103 H (74-99) mg/dL <Estefani Funez - Last Filed: 04/29/20 15:35> Subjective I discussed the care with Marcio Underwood NP and reviewed the findings and plan as documented in the note above. I did not staff this patient on this date. Objective - Vital Signs Vital signs: Vital Signs Temp 97.3 F L 04/29/20 13:13 Pulse 115 H 04/29/20 08:35 Resp 18 04/28/20 06:23 BP 122/84 04/29/20 08:35 Pulse Ox 98 04/26/20 06:44 - Labs CBC & Chem 7: 04/12/20 06:35 04/29/20 11:07 Labs: Abnormal Lab Results - Last 24 Hours (Table) 04/29/20 04/29/20 Range/Units 11:07 11:07 Sodium 132 L (137-145) mmol/L Chloride 95 L (98-107) mmol/L BUN 23 H (9-20) mg/dL Glucose 103 H (74-99) mg/dL TSH 4.860 H (0.465-4.680) mIU/L
[2020-04-29 15:51] LABS: T4, Free (Free Thyroxine) 0.85 ng/dL (0.78-2.19)
[2020-04-29] MEDS: DIVALPROEX ER 500 MG TAB.ER.24H PO SCH (21:05)
[2020-04-30] MEDS: amLODIPine 10 MG TAB PO SCH (08:35)
[2020-04-30] MEDS: lisinopriL 10 MG TAB PO SCH (08:35)
[2020-04-30] MEDS: NICOTINE POLACRILEX 2 MG GUM BUCCAL PRN ×4 (08:35→21:16)
[2020-04-30 08:52] LABS: African American GFR (CKD) >90 (>60 ml/min/1.73 sqM); Anion Gap 5 mmol/L; Blood Urea Nitrogen 19 mg/dL (9-20); Calcium 9.5 mg/dL (8.4-10.2); Carbon Dioxide 32 mmol/L (22-30); Chloride 99 mmol/L (98-107); Glucose 94 mg/dL (74-99); Magnesium 1.9 mg/dL (1.6-2.3); Non-African American GFR(CKD) >90 (>60 ml/min/1.73 sqM); Potassium 5.1 mmol/L (3.5-5.1); Sodium 136 mmol/L (137-145)
--- NOTE | 2020-04-30 09:53 | P.PN ---
<Marcio Underwood - Last Filed: 04/30/20 09:47> Subjective Progress Note Date: 04/30/20 Hospital Course: Patient is a 44-year-old male with a past medical history of hypertension, bipolar disorder, depression, anxiety, and nicotine dependence on cigarettes whom is currently admitted under psychiatry to the mental health unit for treatment of his bipolar disorder accompanied reports of increased agitation and nonadherence with outpatient follow-up treatment program. We have been consulted for management of laboratory findings indicated above hyponatremia w ith sodium of 132 and prerenal azotemia with BUN of 23. Physical exam: Patient seen and fully evaluated at bedside this morning. He was lying in bed and reported feeling generally well today, stating he was just tired because he did not get much sleep last night. Pt continued to deny having any complaints at this time including headache, lightheadedness, dizziness, changes in vision or hearing, tinnitus, chest pain or palpitations, shortness of breath, dyspnea with exertion, or experiencing any swelling/numbness/tingling/weakness in extremities. Sodium improved this morning with morning sodium level 136 and BUN also improved after encouraged oral hydration and is now normal limits at 19. General: Non toxic, no distress, appears at stated age, thin build Derm: warm, dry Head: atraumatic, normocephalic, symmetric Eyes: EOMI, no lid lag, anicteric sclera Mouth: no lip lesion, mucus membranes moist Cardiovascular: Regular rate and rhythm with no murmur, positive posterior tibial pulse bilaterally, cap refill less than 2 seconds. Lungs: Respirations even, regular, and unlabored on room air. Lungs slightly diminished at bilateral lower lobes, otherwise clear to auscultation bilaterally no adventitious lung sounds including wheezes, rhonchi, rales, or crackles noted. Abdominal: Soft, nontender to palpation, no guarding, no appreciable organomegaly Ext: No gross muscle atrophy, no edema, no contractures, ambulatory with a steady gait unassisted. Neuro: Speech clear, GCS 15. No focal neuro deficits Psych: Alert and oriented to person place and time and situation. Cooperative, calm and appropriate affect Plan of care: Hyponatremia, resolved. -Sodium 136. Prerenal azotemia secondary to mild dehydration, resolved -BUN 19 with creatinine 0.84 and GFR >90. Hypertension -Monitor vital signs and continue daily medication management with Norvasc and lisinopril. Nicotine dependence. -Patient reports long-standing history of and current use of tobacco products reportedly smoking 20-30 cigarettes daily. -Patient was educated on importance and benefits of smoking with Zofran and admitted for continued use up to and including . Bipolar disorder with anxiety and depression -Management per primary admitting psychiatric team. Thank you for allowing us to participate in the care of this pleasant patient. Do not hesitate to contact us with questions. Someone can be reached from the [facility] hospitalist group all hours of the day at [phone] or via [employer]. Objective - Vital Signs Vital signs: Vital Signs Temp 98.4 F 04/30/20 06:14 Pulse 120 H 04/30/20 08:39 Resp 18 04/28/20 06:23 BP 108/68 04/30/20 08:39 Pulse Ox 98 04/26/20 06:44 - Labs CBC & Chem 7: 04/12/20 06:35 04/30/20 07:56 Labs: Abnormal Lab Results - Last 24 Hours (Table) 04/29/20 04/29/20 04/30/20 Range/Units 11:07 11:07 07:56 Sodium 132 L 136 L (137-145) mmol/L Chloride 95 L (98-107) mmol/L Carbon Dioxide 32 H (22-30) mmol/L BUN 23 H (9-20) mg/dL Glucose 103 H (74-99) mg/dL TSH 4.860 H (0.465-4.680) mIU/L <Estefani Funez - Last Filed: 04/30/20 11:43> Subjective I discussed the care with Marcio Underwood NP and reviewed the findings and plan as documented in the note above. I did not staff this patient on this date. Objective - Vital Signs Vital signs: Vital Signs Temp 98.4 F 04/30/20 06:14 Pulse 120 H 04/30/20 08:39 Resp 18 04/28/20 06:23 BP 108/68 04/30/20 08:39 Pulse Ox 98 04/26/20 06:44 - Labs CBC & Chem 7: 04/12/20 06:35 04/30/20 07:56 Labs: Abnormal Lab Results - Last 24 Hours (Table) 04/29/20 04/29/2004/30/21 Range/Units 11:07 11:07 07:56 Sodium 132 L 136 L (137-145) mmol/L Chloride 95 L (98-107) mmol/L Carbon Dioxide 32 H (22-30) mmol/L BUN 23 H (9-20) mg/dL Glucose 103 H (74-99) mg/dL TSH 4.860 H (0.465-4.680) mIU/L
--- NOTE | 2020-04-30 10:19 | P.PN ---
Progress Note - Text Progress Note Date: 04/30/20 Interval history: Patient was seen in his room and was directable and agreeable to speak with law writer. The patient is currently not reporting any issues today. He is not reporting any suicidal or homicidal ideation, intention, and/or plan. He is not reporting any auditory or visual hallucinations. Has been in adherent with his medications and is not reporting any significant side effects. He denies any paranoia or delusions. He denies any chest pain, palpitations, restlessness, or muscle tightness. He does express concern for his hyponatremia which looks to be improving. Mental Status Exam: General Appearance: Patient appears to be stated age is alert, directable and cooperative. Hygiene and grooming appear good. Behavior: Patient is calmly lying down in bed without any agitated behavior. Eye contact is appropriate. Speech: Patient's speech is normal in volume, tone, rate, and fluency. Mood/Affect: Mood is "okay." Affect is euthymic but with improved range but somewhat constricted. Suicidality/Homicidality: Patient denies having any suicidal or homicidal ideation intent or plan. Perceptions: Patient denies any visual hallucinations and denies any auditory hallucinations Though content/process: The patient is not endorsing any delusional thought content at this time. Thought process is linear and logical in short conversation. Memory and concentration: AOX3, grossly intact for the purposes of this session Judgment and insight: Improving Assessment Bipolar disorder, type I Cannabis use disorder Nicotine dependence Plan: -Patient continues to meet criteria for inpatient psychiatric admission for symptom stabilization and safety. The patient is court ordered for psychiatric treatment as of 04/27/2020. -Medications: Continue Depakote 1000 mg by mouth at bedtime for eric. Depakote level noted to be 79.0. Invega Sustenna loading dose of 234 mg on 04/18/2020. Abilify maintena 300 mg IM administered on 04/28/2020. Continue oral Abilify 20 mg by mouth daily. -When necessary Ativan and Haldol for agitation/aggression. -NRT -Nicorette gum -SW on board for discharge planning. Encouraged the patient to participate in milieu.
[2020-04-30] MEDS: DIVALPROEX ER 500 MG TAB.ER.24H PO SCH (21:17)
[2020-05-01] MEDS: lisinopriL 10 MG TAB PO SCH (08:36)
[2020-05-01] MEDS: amLODIPine 10 MG TAB PO SCH (08:36)
[2020-05-01] MEDS: NICOTINE POLACRILEX 2 MG GUM BUCCAL PRN ×3 (08:37→17:04)
--- NOTE | 2020-05-01 10:15 | P.PN ---
Progress Note - Text Progress Note Date: 05/01/20 Interval history: Patient was seen in the group room and was directable and agreeable to speak with advertising copywriter. The patient states he is feeling well. He is not reporting any suicidal or homicidal ideation, intention, and/or plan. He is not reporting any auditory or visual hallucinations. He is not reporting any paranoia or delusions. He has been adherent with his medications and does not report any significant side effects at this time. He denies any chest pain, palpitations, restlessness, or muscle tightness. He stresses understanding that he has to follow up with [facility] [address] in the outpatient setting. Mental Status Exam: General Appearance: Patient appears to be stated age is alert, directable and cooperative. Hygiene and grooming appear good. Behavior: Patient is calmly lying down in bed without any agitated behavior. Eye contact is appropriate. Speech: Patient's speech is normal in volume, tone, rate, and fluency. Mood/Affect: Mood is "feeling good." Affect is euthymic with appropriate range Suicidality/Homicidality: Patient denies having any suicidal or homicidal ideation intent or plan. Perceptions: Patient denies any visual hallucinations and denies any auditory hallucinations Though content/process: The patient is not endorsing any delusional thought content at this time. Thought process is linear and logical in short conversation. Memory and concentration: AOX3, grossly intact for the purposes of this session Judgment and insight: Improving Assessment Bipolar disorder, type I Cannabis use disorder Nicotine dependence Plan: -Patient continues to meet criteria for inpatient psychiatric admission for symptom stabilization and safety. The patient is court ordered for psychiatric treatment as of 04/27/2020. -Medications: Continue Depakote 1000 mg by mouth at bedtime for eric. Depakote level noted to be 79.0. Invega Sustenna loading dose of 234 mg on 04/18/2020. Abilify maintena 300 mg IM administered on 04/28/2020. Continue oral Abilify 20 mg by mouth daily. -When necessary Ativan and Haldol for agitation/aggression. -NRT -Nicorette gum - on board for discharge planning. Encouraged the patient to participate in milieu.
[2020-05-01] MEDS: ACETAMINOPHEN TAB 325 MG TAB PO PRN (10:32)
[2020-05-01] MEDS: DIVALPROEX ER 500 MG TAB.ER.24H PO SCH (20:56)
[2020-05-02] MEDS: NICOTINE POLACRILEX 2 MG GUM BUCCAL PRN (04:43)
[2020-05-02 04:45] VITALS: BP 112/78; PULSE 109; RESP 18; TEMP 97.4
[2020-05-02] MEDS: lisinopriL 10 MG TAB PO SCH (07:57)
[2020-05-02] MEDS: amLODIPine 10 MG TAB PO SCH (07:57)
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
== END 2020-05-02 13:20 | disposition home or self-care (01) | DRG 885 ==
LOC: EC 15:22 → 3MHU 19:06
PROVIDERS: ADMIT Psychiatry & Neurology Psychiatry; ATTEND Psychiatry & Neurology Psychiatry
DX: F31.2 Bipolar disorder, current episode manic severe with psychotic features (principal); E87.1 Hypo-osmolality and hyponatremia; F12.20 Cannabis dependence, uncomplicated; R00.0 Tachycardia, unspecified; Z91.19 Patient's noncompliance with other medical treatment and regimen; F41.9 Anxiety disorder, unspecified; I10 Essential (primary) hypertension; Z20.822 Contact with and (suspected) exposure to COVID-19; F17.210 Nicotine dependence, cigarettes, uncomplicated; Z71.6 Tobacco abuse counseling; Z79.899 Other long term (current) drug therapy; Z71.51 Drug abuse counseling and surveillance of drug abuser; Z65.3 Problems related to other legal circumstances; Z56.0 Unemployment, unspecified; Z81.1 Family history of alcohol abuse and dependence
CPT/HCPCS: 80048; 80053; 80061; 80164; 80306; 81003; 82075; 83036; 83735; 83930; 84439; 84443; 84550; 85025; 87635; 93005; 99285